=== PATIENT | male | born 1955 | race African-American/Black ===

== ENCOUNTER 2016-09-16 11:13 | Emergency (ER) | payer MEDICARE, MEDICAID ==
[2016-09-16] MEDS ORDERED: Ibuprofen TAB* 400 MG PO ONE (11:49)
[2016-09-16 12:00] VITALS: BP 155/115
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
== END 2016-09-16 12:03 | disposition home or self-care (01) ==
LOC: ED 11:13
DX: S80.212A Abrasion, left knee, initial encounter (principal); S80.211A Abrasion, right knee, initial encounter; X58.XXXA Exposure to other specified factors, initial encounter; Y92.9 Unspecified place or not applicable; I10 Essential (primary) hypertension; Z72.0 Tobacco use
CPT/HCPCS: 99282; A9270-GY

== ENCOUNTER 2016-11-14 09:26 | Emergency (ER) | payer MEDICARE, MEDICAID ==
[2016-11-14] MEDS ORDERED: NS 0.9% 1000 ML* 2,000 ML IV ONE (10:01)
[2016-11-14] MEDS ORDERED: Acetaminophen TAB* 325 MG PO ONE (10:01)
[2016-11-14 10:21] LABS: Hematocrit 44 % (42-52); Hemoglobin 13.9 g/dl (14.0-18.0); Mean Corpuscular HGB Conc 32 g/dl (31-36); Mean Corpuscular Hemoglobin 25 pg (27-31); Mean Corpuscular Volume 79 fL (80-94); Mean Platelet Volume 9 um3 (7.4-10.4); Red Cell Distribution Width 15 % (10.5-15)
--- NOTE | 2016-11-14 10:39 | RAD ---
INDICATION: Sepsis. COMPARISON: There are no prior studies available for comparison. TECHNIQUE: AP and lateral views of the chest were obtained. FINDINGS: The heart is within normal limits in size. Mediastinal and hilar contours appear within normal limits. There is a small likely calcified nodule in the right midlung measuring 5 mm in size which is unchanged from the prior exam. The lungs are otherwise clear, no pleural effusion is present. IMPRESSION: NO EVIDENCE FOR ACTIVE CARDIOPULMONARY DISEASE.
[2016-11-14 10:42] LABS: Troponin I 0.03 ng/mL (<0.04)
[2016-11-14 10:56] LABS: Albumin 4.2 g/dL (3.2-5.2); BUN/Creatinine Ratio 10.3 (8-20); C Reactive Protein 166.93 mg/L (< 5.00); Calcium 9.6 mg/dL (8.6-10.3); EGFR African American 75.1 (>60); EGFR Non-African American 58.4 (>60); Globulin 2.8 g/dL (2-4); Potassium 3.6 mmol/L (3.5-5.0); Total Bilirubin 2.7 mg/dL (0.2-1.0)
[2016-11-14 11:52] LABS: Urine Bacteria Absent (Absent); Urine Bilirubin Negative (Negative); Urine Glucose Negative (Negative); Urine Nitrite Negative (Negative)
--- NOTE | 2016-11-14 12:06 | RAD ---
INDICATION: ] Right upper quadrant pain COMPARISON: December 18, 2009 TECHNIQUE: Longitudinal and transverse scans of the right upper quadrant were obtained. Doppler interrogation of the hepatic and portal venous system was performed. FINDINGS: Liver: The liver is top normal in size. There is mild hepatic steatosis. There are no focal masses. The liver measures 17.8 cm in cephalocaudal dimension. Vessels: There is normal hepatic and portal venous flow. Bile ducts: There is no evidence of intrahepatic or extrahepatic ductal dilatation. The common duct measures 0.5 cm. Gallbladder: The sonographic appearance of the gallbladder is normal. There is no evidence of cholelithiasis, thickening of the gallbladder wall, or pericholecystic fluid. The patient was tender over the gallbladder while scanning. Pancreas: The visualized pancreas appears normal Right kidney: The right kidney is normal in size and echogenicity. There are no masses or calculi. There is no evidence of hydronephrosis. The right kidney measures 10.2 x 4.6 x 5.3 cm. IVC and aorta: The aorta and superior vena cava appear normal. Fluid: There is no ascites. Other: None. IMPRESSION: NO SONOGRAPHIC ABNORMALITIES. THE PATIENT WAS TENDER OVER THE GALLBLADDER, HOWEVER, WHEN SCANNING
[2016-11-14] MEDS ORDERED: Iohexol 300* (CONTRAST) 10 ML SDV IV ONE (14:01)
--- NOTE | 2016-11-14 15:11 | RAD ---
Indication: Diffuse abdominal pain. Contrast: Administered 118.9 ml of OMNIPAQUE 300 mgi/ml CT of the abdomen and pelvis was performed after oral and IV contrast administration. Coronal and sagittal reconstructed images were obtained. The lung bases demonstrate no pleural fluid, nodules or masses. Heart is of normal size without pericardial effusion. The liver is normal in size. No focal lesions or intrahepatic duct dictation noted. The gallbladder demonstrates no calcified gallstones. No pericholecystic fluid or wall thickening is identified. The spleen demonstrates multiple calcifications consistent with old granulomatous disease. The pancreas demonstrates no pancreatic duct dilatation. Common duct is not dilated. Posterior and dorsal to the pancreatic body and anterior to the left adrenal gland as well as adjacent to the lesser curvature of the stomach is a well demarcated mass with homogeneous low density measuring 2.7 x 4.3 x 2.7 cm. The exact organ of origin is not clearly identified on this study. Further evaluation with ultrasound could be performed if clinically warranted to evaluate if this is a cystic structure. This demonstrates a Hounsfield reading of approximately 40-64 which is likely solid. Bilateral adrenal hyperplasia are noted. The kidneys demonstrate symmetric nephrograms. Small bowel demonstrates no abnormal dilatation. CT of the pelvis demonstrates diverticulosis of the ascending colon. Pericolonic infiltration of fat is noted especially in the medial aspect of the descending colon. There is a small focal contained area of extraluminal air and this may represent of focal diverticulitis of the a.c. ascending colon. Scattered diverticula noted in the descending colon and sigmoid colon as well. No evidence of abscess collection is noted. The urinary bladder is unremarkable. The prostate and seminal vesicles are grossly unremarkable. No retroperitoneal lymphadenopathy is noted. The bony structures are grossly unremarkable. IMPRESSION: THERE IS LIKELY A LOCALIZED DIVERTICULITIS OF THE ASCENDING COLON. NO PERIDIVERTICULAR ABSCESS IS NOTED. HOMOGENEOUS LOW DENSITY MASS DORSAL TO THE PANCREAS INFERIOR TO THE LESSER CURVATURE OF THE STOMACH. THIS IS OF UNCERTAIN ETIOLOGY AND FURTHER EVALUATION WITH ULTRASOUND AND/OR MRI COULD PERFORMED CLINICALLY WARRANTED. THIS MASS MEASURES 2.7 X 4.3 X 2.7 CM
[2016-11-14] MEDS ORDERED: oxyCODONE/Acetamin 5/325 MG* TAB PO ONE (15:53)
[2016-11-14] MEDS ORDERED: metroNIDAZOLE TAB* 250 MG PO ONE (15:54)
[2016-11-14] MEDS ORDERED: Ciprofloxacin TAB* 500 MG PO ONE (15:54)
[2016-11-14 16:05] VITALS: BP 123/76
--- NOTE | 2016-11-15 07:14 | ED ---
Robin Plascencia Matthew, scribed for Lane Maldonado MD on 11/14/16 at 1042 . Abdominal Pain/Male - HPI Summary HPI Summary: A 61 y/o male presents to the ED with constant, diffuse lower abdominal pain since yesterday. The pain is rated 9/10 in severity and worse with movement. The patient's symptoms began 2 hours after he ate a bologna sandwich. Associated symptoms include a constant, diffuse headache described as throbbing , chills, fever, constipation, and inability to sleep. He denies nausea, vomiting, diarrhea, sore throat, and sinus congestion. - History of Current Complaint Chief Complaint: EDAbdPain Stated Complaint: HEADACHE / ABD PAIN Time Seen by Provider: 11/14/16 09:49 Hx Obtained From: Patient Onset/Duration: Lasting Days, Still Present Timing: Constant Severity Initially: Moderate Severity Currently: Moderate Pain Intensity: 9 Pain Scale Used: 0-10 Numeric Location: Diffuse - lower abdominal Radiates: No Aggravating Factor(s): Movement Alleviating Factor(s): Nothing Associated Signs And Symptoms: Positive: Fever, Constipation, Other - Headache, Chills. Negative: Vomiting, Diarrhea - Allergies/Home Medications Allergies/Adverse Reactions: Allergies Allergy/AdvReac Type Severity Reaction Status Date / Time No Known Allergies Allergy Verified 09/16/16 11:18 PMH/Surg Hx/FS Hx/Imm Hx Cardiovascular History: Reports: Hx Hypertension Musculoskeletal History: Reports: Hx Orthopedic Injury, Other Musculoskeletal History - osteoarthritis bilateral knees Infectious Disease History: No Infectious Disease History: Denies: Traveled Outside the [place] in Last 30 Days - Family History Known Family History: Positive: Hypertension - Social History Alcohol Use: Rare Alcohol Amount: 2 beers a day Substance Use Type: Reports: None Smoking Status (MU): Light Every Day Tobacco Smoker Review of Systems Positive: Fever, Chills Eyes: Negative ENT: Negative Negative: Sore Throat Cardiovascular: Negative Respiratory: Negative Gastrointestinal: Other - Constipation Positive: Abdominal Pain - Diffuse lower abdominal pain . Negative: Vomiting, Diarrhea, Nausea Genitourinary: Negative Negative: dysuria, hematuria Musculoskeletal: Negative Skin: Negative Neurological: Negative Psychological: Normal All Other Systems Reviewed And Are Negative: Yes Physical Exam Triage Information Reviewed: Yes Vital Signs On Initial Exam: Initial Vitals Temp Pulse Resp BP Pulse Ox 101.4 F 126 24 144/108 100 11/14/16 09:28 11/14/16 09:28 11/14/16 09:28 11/14/16 09:28 11/14/16 09:28 Vital Signs Reviewed: Yes Appearance: Positive: No Pain Distress, Well-Nourished Skin: Positive: Warm, Skin Color Reflects Adequate Perfusion, Dry Head/Face: Positive: Normal Head/Face Inspection Eyes: Positive: Normal ENT: Positive: Normal ENT inspection Neck: Positive: Supple, Nontender Respiratory/Lung Sounds: Positive: Clear to Auscultation, Breath Sounds Present Cardiovascular: Positive: Tachycardia Abdomen Description: Positive: No Organomegaly, Soft, Other: - nondescript tenderness, the abdomen had tenderness everywhere I palpated Bowel Sounds: Positive: Present Musculoskeletal: Positive: Normal Neurological: Positive: Normal, Alert, Oriented to Person Place, Time Psychiatric: Positive: Affect/Mood Appropriate - Aaron Coma Scale Coma Scale Total: 15 Diagnostics - Vital Signs Vital Signs Temp Pulse Resp BP Pulse Ox 11/14/16 09:45 98.1 F 100 16 142/97 97 11/14/16 09:40 103 97 11/14/16 09:39 147/101 11/14/16 09:28 101.4 F 126 24 144/108 100 - Laboratory Lab Results: Lab Results 11/14/16 11/14/16 11/14/16 Range/Units 10:07 10:07 10:07 WBC 16.0 H (3.5-10.8) 10^3/ul RBC 5.60 H (4.0-5.4) 10^6/ul Hgb 13.9 L (14.0-18.0) g/dl Hct 44 (42-52) % MCV 79 L (80-94) fL MCH 25 L (27-31) pg MCHC 32 (31-36) g/dl RDW 15 (10.5-15) % Plt Count 110 L (150-450) 10^3/ul MPV 9 (7.4-10.4) um3 Neut % (Auto) 91.0 H (38-83) % Lymph % (Auto) 1.5 L (25-47) % Meeker % (Auto) 5.5 (1-9) % Eos % (Auto) 1.5 (0-6) % Baso % (Auto) 0.5 (0-2) % Absolute Neuts (auto) 14.5 H (1.5-7.7) 10^3/ul Absolute Lymphs (auto) 0.2 L (1.0-4.8) 10^3/ul Absolute Monos (auto) 0.9 H (0-0.8) 10^3/ul Absolute Eos (auto) 0.2 (0-0.6) 10^3/ul Absolute Basos (auto) 0.1 (0-0.2) 10^3/ul Absolute Nucleated RBC 0 10^3/ul Nucleated RBC % 0 INR (Anticoag Therapy) 1.25 H (0.89-1.11) APTT 32.5 (26.0-36.3) seconds Sodium 136 (133-145) mmol/L Potassium 3.6 (3.5-5.0) mmol/L Chloride 101 (101-111) mmol/L Carbon Dioxide 26 (22-32) mmol/L Anion Gap 9 (2-11) mmol/L BUN 13 (6-24) mg/dL Creatinine 1.26 H (0.67-1.17) mg/dL Est GFR ( Amer) 75.1 (>60) Est GFR (Non-Af Amer) 58.4 (>60) BUN/Creatinine Ratio 10.3 (8-20) Glucose 97 (70-100) mg/dL Lactic Acid (0.5-2.0) mmol/L Calcium 9.6 (8.6-10.3) mg/dL Total Bilirubin 2.70 H (0.2-1.0) mg/dL AST 62 H (13-39) U/L ALT 70 H (7-52) U/L Alkaline Phosphatase 95 (34-104) U/L Troponin I 0.03 (<0.04) ng/mL C-Reactive Protein 166.93 H (< 5.00) mg/L Total Protein 7.0 (6.4-8.9) g/dL Albumin 4.2 (3.2-5.2) g/dL Globulin 2.8 (2-4) g/dL Albumin/Globulin Ratio 1.5 (1-3) Urine Color Urine Appearance Urine pH (5-9) Ur Specific Montgomery (1.010-1.030) Urine Protein (Negative) Urine Ketones (Negative) Urine Blood (Negative) Urine Nitrate (Negative) Urine Bilirubin (Negative) Urine Urobilinogen (Negative) Ur Leukocyte Esterase (Negative) Urine WBC (Auto) (Absent) Urine RBC (Auto) (Absent) Ur Squamous Epith Cells (Absent) Urine Bacteria (Absent) Urine Glucose (Negative) Influenza A (Rapid) (Negative) Influenza B (Rapid) (Negative) 11/14/16 11/14/16 11/14/16 Range/Units 10:07 10:32 11:11 WBC (3.5-10.8) 10^3/ul RBC (4.0-5.4) 10^6/ul Hgb (14.0-18.0) g/dl Hct (42-52) % MCV (80-94) fL MCH (27-31) pg MCHC (31-36) g/dl RDW (10.5-15) % Plt Count (150-450) 10^3/ul MPV (7.4-10.4) um3 Neut % (Auto) (38-83) % Lymph % (Auto) (25-47) % Meeker % (Auto) (1-9) % Eos % (Auto) (0-6) % Baso % (Auto) (0-2) % Absolute Neuts (auto) (1.5-7.7) 10^3/ul Absolute Lymphs (auto) (1.0-4.8) 10^3/ul Absolute Monos (auto) (0-0.8) 10^3/ul Absolute Eos (auto) (0-0.6) 10^3/ul Absolute Basos (auto) (0-0.2) 10^3/ul Absolute Nucleated RBC 10^3/ul Nucleated RBC % INR (Anticoag Therapy) (0.89-1.11) APTT (26.0-36.3) seconds Sodium (133-145) mmol/L Potassium (3.5-5.0) mmol/L Chloride (101-111) mmol/L Carbon Dioxide (22-32) mmol/L Anion Gap (2-11) mmol/L BUN (6-24) mg/dL Creatinine (0.67-1.17) mg/dL Est GFR ( Amer) (>60) Est GFR (Non-Af Amer) (>60) BUN/Creatinine Ratio (8-20) Glucose (70-100) mg/dL Lactic Acid 0.9 (0.5-2.0) mmol/L Calcium (8.6-10.3) mg/dL Total Bilirubin (0.2-1.0) mg/dL AST (13-39) U/L ALT (7-52) U/L Alkaline Phosphatase (34-104) U/L Troponin I (<0.04) ng/mL C-Reactive Protein (< 5.00) mg/L Total Protein (6.4-8.9) g/dL Albumin (3.2-5.2) g/dL Globulin (2-4) g/dL Albumin/Globulin Ratio (1-3) Urine Color Yellow Urine Appearance Clear Urine pH 5.0 (5-9) Ur Specific Montgomery 1.017 (1.010-1.030) Urine Protein Negative (Negative) Urine Ketones Trace H (Negative) Urine Blood 1+ H (Negative) Urine Nitrate Negative (Negative) Urine Bilirubin Negative (Negative) Urine Urobilinogen Negative (Negative) Ur Leukocyte Esterase Negative (Negative) Urine WBC (Auto) Trace(0-5/hpf) (Absent) Urine RBC (Auto) Trace(0-2/hpf) (Absent) Ur Squamous Epith Cells Present H (Absent) Urine Bacteria Absent (Absent) Urine Glucose Negative (Negative) Influenza A (Rapid) Negative (Negative) Influenza B (Rapid) Negative (Negative) Result Diagrams: 11/14/16 10:07 11/14/16 10:07 Lab Statement: Any lab studies that have been ordered have been reviewed, and results considered in the medical decision making process. - Radiology CXR Xray Interpretation: No Acute Changes - IMPRESSION: NO EVIDENCE FOR ACTIVE CARDIOPULMONARY DISEASE. Radiology Interpretation Completed By: Radiologist - CT A/P CT CT Interpretation: Positive (See Comments) - IMPRESSION: THERE IS LIKELY A LOCALIZED DIVERTICULITIS OF THE ASCENDING COLON. NO PERIDIVERTICULAR ABSCESS IS NOTED. HOMOGENEOUS LOW DENSITY MASS DORSAL TO THE PANCREAS INFERIOR TO THE LESSER CURVATURE OF THE STOMACH. THIS IS OF UNCERTAIN ETIOLOGY AND FURTHER EVALUATION WITH ULTRASOUND AND/OR MRI COULD PERFORMED CLINICALLY WARRANTED. THIS MASS MEASURES 2.7 X 4[address] Interpretation Completed By: Radiologist - Ultrasound No standard instances Ultrasound Interpretation: No Acute Changes - IMPRESSION: NO SONOGRAPHIC ABNORMALITIES. THE PATIENT WAS TENDER OVER THE GALLBLADDER, HOWEVER, WHEN SCANNING Ultrasound Interpretation Completed By: Radiologist Abdominal Pain Fem Course/Dx - Course Assessment/Plan: A 61 y/o male presents to the ED with constant, diffuse lower abdominal pain since yesterday. Labs were reviewed. CXR shows no active cardiopulmonary disease. CT A/P shows likely a localized diverticulitis of the ascending colon. US shows no sonographic abnormalities. The patient will be discharged home on Cipro and Percocet. He will follow-up with his PCP next week. - Diagnoses Provider Diagnoses: Diverticulitis Discharge - Discharge Plan Condition: Stable Disposition: HOME Prescriptions: Ciprofloxacin TAB* [Cipro Tab*] 500 mg PO BID #20 tab Metronidazole [Flagyl 500 MG TAB] 500 mg PO TID #30 tab oxyCODONE/Acetamin 5/325 MG* [Percocet 5/325 TAB*] 1 tab PO Q6H PRN #20 tab MDD 4 PRN Reason: Pain Patient Education Materials: Diverticulitis (ED), Ciprofloxacin (By mouth), Oxycodone/Acetaminophen (By mouth) Referrals: No Primary Care Phys,NOPCP [Primary Care Provider] - 5 Days Additional Instructions: Please follow-up with your primary care physician next week. The documentation as recorded by the Robin mckeon Matthew accurately reflects the service I personally performed and the decisions made by , Lane Maldonado MD.
== END 2016-11-14 16:05 | disposition home or self-care (01) ==
LOC: ED 09:26
DX: K57.92 Diverticulitis of intestine, part unspecified, without perforation or abscess without bleeding (principal); R10.30 Lower abdominal pain, unspecified; R51 Headache; R50.9 Fever, unspecified; K59.00 Constipation, unspecified
CPT/HCPCS: 36415; 71020; 74177; 76705; 80053; 81003; 81015; 83605; 84484; 85025; 85610; 85730; 86140; 87502; 99283; A9270-GY; Q9967

== ENCOUNTER 2017-04-03 08:25 | Emergency (ER) | payer MEDICARE, MEDICAID ==
[2017-04-03] MEDS ORDERED: Ketorolac INJ* 30 MG/ML 1 ML VIAL IV ONE (08:40)
--- NOTE | 2017-04-03 09:24 | RAD ---
Indication: Right foot pain. 3 views of the right foot demonstrates no fracture. No other bone or joint abnormality is identified. IMPRESSION: No fracture of the right foot is noted.
[2017-04-03 09:43] LABS: Hematocrit 43 % (42-52); Hemoglobin 13.7 g/dl (14.0-18.0); Mean Corpuscular HGB Conc 32 g/dl (31-36); Mean Corpuscular Hemoglobin 26 pg (27-31); Mean Corpuscular Volume 81 fL (80-94); Red Blood Count 5.29 10^6/ul (4.0-5.4); Red Cell Distribution Width 16 % (10.5-15); White Blood Count 8.4 10^3/ul (3.5-10.8)
[2017-04-03 09:45] LABS: Comments Flag Yes
[2017-04-03 09:46] LABS: Add Diff/Slide Review? Slide Review Added
[2017-04-03 09:49] LABS: Albumin 4.5 g/dL (3.2-5.2); BUN/Creatinine Ratio 16.7 (8-20); C Reactive Protein 6.18 mg/L (< 5.00); Calcium 9.4 mg/dL (8.6-10.3); EGFR African American 119.9 (>60); EGFR Non-African American 93.2 (>60); Globulin 2.8 g/dL (2-4); Potassium 4.2 mmol/L (3.5-5.0); Total Bilirubin 1.3 mg/dL (0.2-1.0); Total Protein 7.3 g/dL (6.4-8.9); Uric Acid 9.4 mg/dL (4.4-7.6)
[2017-04-03] MEDS ORDERED: Cephalexin CAP* 500 MG PO ONE (10:25)
[2017-04-03 10:55] LABS: Mean Platelet Volume 9 um3 (7.4-10.4)
[2017-04-03 11:18] VITALS: BP 137/84
--- NOTE | 2017-04-04 19:19 | ED ---
Eva Plascencia Alfonso, scribed for Jcarlos Jeff MD on 04/03/17 at 0833 . Lower Extremity - HPI Summary HPI Summary: This patient is a 61 year old M presenting to [facility] with a chief complaint of right great toe pain since yesterday morning. Pt rates the pain 9/10 in severity. Symptoms aggravated by ambulation and alleviated by nothing. Pt denies fever, chills. He denies any recent trauma. PMHx of HTN. ETOH abuse (6 beers a day). - History of Current Complaint Chief Complaint: EDExtremityLower Stated Complaint: RT FOOT PAIN Hx Obtained From: Patient Mechanism Of Injury: Unknown Onset of Pain: Days - Yesterday morning, Prior to Arrival Onset/Duration: Still Present - Yesterday morning Severity Initially: Severe Severity Currently: Severe Pain Intensity: 9 Pain Scale Used: 0-10 Numeric Timing: Constant Location: Is Discrete @ - Right great toe Associated Signs And Symptoms: Positive: Other - negative chills. Negative: Fever Aggravating Factor(s): Ambulation Alleviating Factor(s): Nothing - Allergies/Home Medications Allergies/Adverse Reactions: Allergies Allergy/AdvReac Type Severity Reaction Status Date / Time No Known Allergies Allergy Verified 04/03/17 08:41 Home Medications: Home Medications Lisinopril/HCTZ 03/09.5(NF) 1 tab PO DAILY 04/03/17 [History Confirmed 04/03/17] PMH/Surg Hx/FS Hx/Imm Hx Cardiovascular History: Reports: Hx Hypertension Musculoskeletal History: Reports: Hx Orthopedic Injury, Other Musculoskeletal History - osteoarthritis bilateral knees Opthamlomology History: Denies: Hx Legally Blind EENT History: Denies: Hx Deafness Infectious Disease History: Denies: Traveled Outside the [place] in Last 30 Days - Family History Known Family History: Positive: Hypertension - Social History Alcohol Use: Rare Alcohol Amount: 2 beers a day Substance Use Type: Reports: None Smoking Status (MU): Light Every Day Tobacco Smoker Review of Systems Negative: Fever, Chills Musculoskeletal: Other - Positive right great toe pain. All Other Systems Reviewed And Are Negative: Yes Physical Exam - Summary Physical Exam Summary: VITAL SIGNS: Reviewed. GENERAL: Patient is a well-developed and nourished male who is lying comfortable in the stretcher. Patient is not in any acute respiratory distress. HEAD AND FACE: No signs of trauma. No ecchymosis, hematomas or skull depressions. No sinus tenderness. EYES: PERRLA, EOMI x 2, No injected conjunctiva, no nystagmus. EARS: Hearing grossly intact. Ear canals and tympanic membranes are within normal limits. MOUTH: Oropharynx within normal limits. NECK: Supple, trachea is midline, no adenopathy, no JVD, no carotid bruit, no c- spine tenderness, neck with full ROM. CHEST: Symmetric, no tenderness at palpation LUNGS: Clear to auscultation bilaterally. No wheezing or crackles. CVS: Regular rate and rhythm, S1 and S2 present, no murmurs or gallops appreciated. ABDOMEN: Soft, non-tender. No signs of distention. No rebound no guarding, and no masses palpated. Bowel sounds are normal. EXTREMITIES: Right great toe tenderness, erythema, and decreased ROM secondary to the pain. NEURO: Alert and oriented x 3. No acute neurological deficits. Speech is normal and follows commands. SKIN: Dry and warm Triage Information Reviewed: Yes Vital Signs On Initial Exam: Initial Vitals Temp Pulse Resp BP Pulse Ox 98.4 F 105 16 144/124 99 04/03/17 08:28 04/03/17 08:28 04/03/17 08:28 04/03/17 08:28 04/03/17 08:28 Vital Signs Reviewed: Yes Diagnostics - Vital Signs Vital Signs Temp Pulse Resp BP Pulse Ox 04/03/17 08:28 98.4 F 105 16 144/124 99 - Laboratory Lab Results: Lab Results 04/03/17 04/03/17 04/03/17 Range/Units 09:20 09:20 09:20 WBC 8.4 (3.5-10.8) 10^3/ul RBC 5.29 (4.0-5.4) 10^6/ul Hgb 13.7 L (14.0-18.0) g/dl Hct 43 (42-52) % MCV 81 (80-94) fL MCH 26 L (27-31) pg MCHC 32 (31-36) g/dl RDW 16 H (10.5-15) % Plt Count 164 (150-450) 10^3/ul MPV 9 (7.4-10.4) um3 Neut % (Auto) 66.1 (38-83) % Lymph % (Auto) 17.9 L (25-47) % Tift % (Auto) 10.5 H (1-9) % Eos % (Auto) 4.8 (0-6) % Baso % (Auto) 0.7 (0-2) % Absolute Neuts (auto) 5.6 (1.5-7.7) 10^3/ul Absolute Lymphs (auto) 1.5 (1.0-4.8) 10^3/ul Absolute Monos (auto) 0.9 H (0-0.8) 10^3/ul Absolute Eos (auto) 0.4 (0-0.6) 10^3/ul Absolute Basos (auto) 0.1 (0-0.2) 10^3/ul Absolute Nucleated RBC 0.01 10^3/ul Nucleated RBC % 0.1 Sodium 136 (133-145) mmol/L Potassium 4.2 (3.5-5.0) mmol/L Chloride 106 (101-111) mmol/L Carbon Dioxide 22 (22-32) mmol/L Anion Gap 8 (2-11) mmol/L BUN 14 (6-24) mg/dL Creatinine 0.84 (0.67-1.17) mg/dL Est GFR ( Amer) 119.9 (>60) Est GFR (Non-Af Amer) 93.2 (>60) BUN/Creatinine Ratio 16.7 (8-20) Glucose 82 (70-100) mg/dL Lactic Acid 1.2 (0.5-2.0) mmol/L Uric Acid 9.4 H (4.4-7.6) mg/dL Calcium 9.4 (8.6-10.3) mg/dL Total Bilirubin 1.30 H (0.2-1.0) mg/dL AST 22 (13-39) U/L ALT 17 (7-52) U/L Alkaline Phosphatase 71 (34-104) U/L C-Reactive Protein 6.18 H (< 5.00) mg/L Total Protein 7.3 (6.4-8.9) g/dL Albumin 4.5 (3.2-5.2) g/dL Globulin 2.8 (2-4) g/dL Albumin/Globulin Ratio 1.6 (1-3) Result Diagrams: 04/03/17 09:20 04/03/17 09:20 Lab Statement: Any lab studies that have been ordered have been reviewed, and results considered in the medical decision making process. - Radiology Foot X-Ray Radiology Interpretation Completed By: Radiologist - No fracture of the right foot is noted. Lower Extremity Course/Dx - Course Course Of Treatment: This patient is a 61 year old M presenting to [facility] with a chief complaint of right great toe pain since yesterday morning. Pt rates the pain 9/10 in severity. Symptoms aggravated by ambulation and alleviated by nothing. Pt denies fever, chills. He denies any recent trauma. PMHx of HTN. ETOH abuse (6 beers a day). Assessment/Plan: Test results without any significant abnormalities expect for increased Uric Acid and CRP of 6.18. I believe the patients symptoms are secondary to gout. However, there is small abrasion surrounding the area of the pain, so I am unable to rule out cellulitis. Therefore, the patient was given Toradol for the gout and Keflex for cellulitis. Foot X-Ray reveals No fracture of the right foot is noted. At this point I discussed all findings, test results , and need to follow up with PCP with the patient. He was instructed to elevate his foot at all times. He was instructed to return to the ED if he develops a fever, chills, worsening of any symptoms or pain. Patient is hemodynamically stable and A&Ox3. I discussed all the findings and test results with the patient. Patient was instructed to return to the emergency room immediately if any of the symptoms return or worsens. Plan of care was discussed with the patient and understands and agrees. All questions were answered at patient satisfaction. There were no further complaints or concerns. Lung exam before discharge: CTA B/L. Good air exchange. No wheezing or crackles heard. CVS: S1 and S2 present. No murmurs appreciated. Patient is alert and oriented x 3. Patient is hemodynamically stable. Patient will be discharged home with follow up PCP in the next 2-3 days - Diagnoses Differential Diagnosis/HQI/PQRI: Positive: Bursitis, Cellulitis, Gout Provider Diagnoses: Gout, Cellulitis Discharge - Discharge Plan Condition: Stable Disposition: HOME Prescriptions: Cephalexin CAP* [Keflex CAP*] 500 mg PO TID #30 cap Indomethacin CAP* [Indocin CAP*] 50 mg PO TID PRN #30 cap PRN Reason: Pain Patient Education Materials: Gout (ED), Cellulitis (ED) Referrals: [facility] PHYSICIAN REFERRAL [Outside] - 3 Days The documentation as recorded by the Eva mckeon Alfonso accurately reflects the service I personally performed and the decisions made by Tomer montez Walter, MD.
== END 2017-04-03 11:17 | disposition home or self-care (01) ==
LOC: ED 08:25
DX: M10.9 Gout, unspecified (principal); L03.031 Cellulitis of right toe; F17.210 Nicotine dependence, cigarettes, uncomplicated; I10 Essential (primary) hypertension
CPT/HCPCS: 36415; 80053; 83605; 84550; 85025; 86140; 96374; 99283; A9270-GY; J1885

== ENCOUNTER 2017-05-10 11:43 | Observation (INO) | payer MEDICARE, MEDICAID ==
[2017-05-10] MEDS ORDERED: Aspirin Low Dose CHEW TAB* 81 MG PO ONE (12:40)
--- NOTE | 2017-05-10 13:14 | RAD ---
HISTORY: Chest pain COMPARISONS: November 14, 2016 VIEWS:1: Single frontal portable view of the chest at 1:00 PM FINDINGS: LINES AND TUBES: None. CARDIOMEDIASTINAL SILHOUETTE: The cardiomediastinal silhouette is stable. PLEURA: The costophrenic angles are sharp. No pleural abnormalities are noted. LUNG PARENCHYMA: The lungs are clear. ABDOMEN: The upper abdomen is clear. There is no subphrenic gas. BONES AND SOFT TISSUES: No bone or soft tissue abnormalities are noted. IMPRESSION: NO ACTIVE CARDIOPULMONARY DISEASE.
[2017-05-10 13:35] LABS: Add Diff/Slide Review? Slide Review Added; Comments Flag Yes; Hematocrit 43 % (42-52); Mean Corpuscular HGB Conc 32 g/dl (31-36); Mean Corpuscular Hemoglobin 26 pg (27-31); Mean Corpuscular Volume 80 fL (80-94); Mean Platelet Volume 9 um3 (7.4-10.4); Red Blood Count 5.43 10^6/ul (4.0-5.4); Red Cell Distribution Width 15 % (10.5-15); White Blood Count 9.9 10^3/ul (3.5-10.8)
[2017-05-10 13:44] LABS: Albumin 4.6 g/dL (3.2-5.2); BUN/Creatinine Ratio 15.4 (8-20); Calcium 9.9 mg/dL (8.6-10.3); EGFR African American 109.3 (>60); Globulin 2.8 g/dL (2-4); Potassium 3.7 mmol/L (3.5-5.0); Total Bilirubin 1.4 mg/dL (0.2-1.0); Total Protein 7.4 g/dL (6.4-8.9)
[2017-05-10 13:46] LABS: Troponin I 0.01 ng/mL (<0.04)
[2017-05-10] MEDS ORDERED: Ondansetron INJ* 2 MG/ML VIAL IV PRN (13:58)
[2017-05-10] MEDS ORDERED: Acetaminophen TAB* 325 MG PO PRN (13:58)
[2017-05-10] MEDS ORDERED: Al Hydrox/Mg Hydrox/Simet LIQ* 30 ML UDC PO PRN (13:58)
[2017-05-10] MEDS ORDERED: Temazepam CAP* 15 MG PO PRN (13:58)
--- NOTE | 2017-05-10 14:30 | ED ---
Ny Plascencia Edward, scribed for Tarik Altamirano on 05/10/17 at 1225 . HPI Chest Pain - HPI Summary HPI Summary: 61 y/o male presents to ED c/o intermittent CP starting this morning, that comes every 20-25 minutes, lasting seconds each episode. The pt was walking when it started. Denies N/V, SOB, pedal edema. EtOH use. Smoker. PMHx HTN, arthritis in both knees. Denies FHx cardiac disease. - History of Current Complaint Chief Complaint: EDChestPainROMI Time Seen by Provider: 05/10/17 12:12 Hx Obtained From: Patient Onset/Duration: Started Hours Ago Timing: Intermittent, Lasting Seconds Associated Signs and Symptoms: Positive: Chest Pain. Negative: Shortness of Breath, Nausea, Calf Pain/Swelling, Vomiting - Allergy/Home Medications Allergies/Adverse Reactions: Allergies Allergy/AdvReac Type Severity Reaction Status Date / Time No Known Allergies Allergy Verified 04/03/17 08:41 PMH/Surg Hx/FS Hx/Imm Hx Previously Healthy: No Cardiovascular History: Reports: Hx Hypertension Musculoskeletal History: Reports: Hx Orthopedic Injury, Other Musculoskeletal History - osteoarthritis bilateral knees Sensory History: Denies: Hx Legally Blind, Hx Deafness Opthamlomology History: Denies: Hx Legally Blind Infectious Disease History: Denies: Traveled Outside the [place] in Last 30 Days - Family History Known Family History: Positive: Hypertension Negative: Cardiac Disease - Social History Alcohol Use: Rare Alcohol Amount: 2 beers a day Substance Use Type: Reports: None Smoking Status (MU): Light Every Day Tobacco Smoker Review of Systems Constitutional: Negative Eyes: Negative ENT: Negative Positive: Chest Pain Respiratory: Negative Gastrointestinal: Negative Genitourinary: Negative Musculoskeletal: Negative Skin: Negative Neurological: Negative Psychological: Normal All Other Systems Reviewed And Are Negative: Yes Physical Exam Triage Information Reviewed: Yes Vital Signs On Initial Exam: Initial Vitals Temp Pulse Resp BP Pulse Ox 97.3 F 103 20 141/104 99 05/10/17 11:52 05/10/17 11:52 05/10/17 11:52 05/10/17 11:52 05/10/17 11:52 Vital Signs Reviewed: Yes Appearance: Positive: Well-Appearing, No Pain Distress Skin: Positive: Warm, Skin Color Reflects Adequate Perfusion, Dry Head/Face: Positive: Normal Head/Face Inspection Eyes: Positive: EOMI, ARPITA ENT: Positive: Normal ENT inspection Neck: Positive: Supple, Nontender Respiratory/Lung Sounds: Positive: Clear to Auscultation, Breath Sounds Present Cardiovascular: Positive: Pulses are Symmetrical in both Upper and Lower Extremities, Tachycardia Abdomen Description: Positive: Nontender, Soft Bowel Sounds: Positive: Present Musculoskeletal: Positive: Normal, Strength/ROM Intact Neurological: Positive: Normal, Sensory/Motor Intact, Alert, Oriented to Person Place, Time Diagnostics - Vital Signs Vital Signs Temp Pulse Resp BP Pulse Ox 05/10/17 11:52 97.3 F 103 20 141/104 99 - Laboratory Result Diagrams: 05/10/17 13:05 05/10/17 13:05 Lab Statement: Any lab studies that have been ordered have been reviewed, and results considered in the medical decision making process. - Radiology CXR Xray Interpretation: No Acute Changes - NO ACTIVE DISEASE Radiology Interpretation Completed By: Radiologist - EKG 1 EKG Interpretation: 12:04 - SINUS TACHYCARDIA @ 100 BPM. NONSPECIFIC T CHANGES Chest Pain Course/Dx - Course Assessment/Plan: 61 y/o male presents to ED c/o intermittent CP starting this morning, that comes every 20-25 minutes, lasting seconds each episode. The pt was walking when it started. Denies N/V, SOB, pedal edema. EtOH use. Smoker. PMHx HTN, arthritis in both knees. Denies FHx cardiac disease. EKG 12:04 - SINUS TACHYCARDIA @ 100 BPM. NONSPECIFIC T CHANGES. CXR SHOWS NO ACTIVE CARDIOPULMONARY DISEASE. Labs done. Spoke with Dr. Hernandez @ 13:55 who admitted the pt to [facility] to r/o [place]. Pt is agreeable. - Diagnoses Provider Diagnoses: Chest pain, rule out acute myocardial infarction - Provider Notifications Discussed Care Of Patient With: Tiffany Hernandez Time Discussed With Above Provider: 13:55 Instructed by Provider To: Admit As Inpatient Discharge - Discharge Plan Condition: Stable Disposition: HOME Referrals: No Primary Care Phys,NOPCP [Primary Care Provider] - The documentation as recorded by the Ny mckeon Edward accurately reflects the service I personally performed and the decisions made by me, Tarik Altamirano.
[2017-05-10] MEDS: Lisinopril TAB* 10 MG PO SCH (15:29)
[2017-05-10] MEDS: Hydrochlorothiazide TAB* 25 MG PO SCH (15:29)
[2017-05-10] MEDS: Heparin VIAL(*) 5000 UNITS/ML VIAL (FIVE THOUSAND) SUBCUT SCH ×2 (15:32→21:44)
[2017-05-10 15:35] LABS: Troponin I 0.01 ng/mL (<0.04)
--- NOTE | 2017-05-10 16:21 | HP ---
CC: [facility]. HISTORY AND PHYSICAL: DATE OF ADMISSION: 05/10/17 PRIMARY CARE PROVIDER: Physician from [facility], the patient does not remember the name. CHIEF COMPLAINT: Chest pain. Please note that the patient is unusually cheerful during my evaluation, laughing frequently, and a very poor historian. HISTORY OF PRESENT ILLNESS: The patient is a 61-year-old male with a history of hypertension, who presented to [facility] complaining of chest pain. When asked about the chest pain, he started laughing and stated that chest pain felt like a pinch and was localized right above his left nipple. He said that it lasted "just a couple of seconds." Due to the duration of his chest pain, it was impossible for the patient to figure out if the pain was pleuritic or not or if something was able to relieve the pain. The patient stated that he was sitting and talking with his sisters during that time. When the patient was asked what concerned about his pain, he stated nothing really but he was told in the past that whenever he has chest pain he should come into the ED to be evaluated. Dr. Altamirano evaluated the patient in the emergency department and recommended overnight observation to rule out angina. PAST MEDICAL HISTORY: 1. Hypertension. 2. History of osteoarthritis in bilateral knees. 3. History of knee surgery. That was obtained from the patient's medical records. The patient himself stated that he never had surgeries in his life. Although, the patient himself mentioned that he has no history of heart disease , from my review of medical records in 2010, he had a cardiac catheterization for congestive heart failure and chest pain. At that point, it was noted that he had an EF of 15% and severely dilated left ventricle as well as normal coronary arteries and moderate pulmonary hypertension. MEDICATIONS: The patient does not remember. From calling [facility] pharmacy, the patient had been on: 1. Indomethacin 50 mg t.i.d. p.r.n. 2. Lisinopril/hydrochlorothiazide 08/26.5 one tablet daily. ALLERGIES: No known drug allergies. FAMILY HISTORY: Positive for father who in his 60s of lung cancer. Mother is alive and well at the age of 96. SOCIAL HISTORY: The patient stated that he smoked 10 cigarettes a day and he has been doing so since he was a teenager. He drinks alcohol daily, but could not tell me the quantity. He denies any drug use. He lives alone and his sister, Wendy Cleary, is his surrogate. The patient also volunteers at [facility]. REVIEW OF SYSTEMS: Please see history of present illness. Once again, please note that the patient is a very poor nonspecific historian, frequently laughing. Currently, he denies any pain or shortness of breath. He has not had any fevers. All the remaining 14 systems were reviewed with the patient and were otherwise negative. PHYSICAL EXAMINATION GENERAL: The patient is a very pleasant 61-year-old male, who is in no acute distress. Alert, awake, and oriented x3. VITAL SIGNS: Blood pressure of 151/103, heart rate of 101 and regular, respiratory rate 17, oxygen saturation 99% on room air, temperature 98.4. HEENT: Head atraumatic, normocephalic. Eyes: Pupils equal and reactive to light and accommodation. Oropharynx clear. Mucosa is moist. NECK: Supple. No JVD. No bruit bilaterally. RESPIRATORY: Clear to auscultation bilaterally. CARDIOVASCULAR: Regular rate and rhythm. No murmur. ABDOMEN: Soft, nontender. Bowel sounds present in all 4 quadrants. EXTREMITIES: There is no edema. Pulses are +2 bilaterally. No clubbing or cyanosis. NEURO EVALUATION: Speech clear. Cranial nerves II through XII are grossly intact. Motor strength is 5/5 bilaterally. PSYCHIATRIC EVALUATION: Oriented x3 with no evidence of anxiety or depression, unusually cheerful. DIAGNOSTIC STUDIES/LAB DATA: Laboratory data showed white blood cell count of 9.9, hemoglobin of 14.0, hematocrit of 43, and platelets of 163. The patient's D-dimer was below 200. Sodium was 138, potassium 3.7, chloride 105, carbon dioxide 26, BUN 14, creatinine 0.91. Liver function tests were unremarkable. Bilirubin of 1.4, which is consistent with prior. Brain natriuretic peptide was 182 and troponin of 0.01. The patient's EKG showed sinus tachycardia with a heart rate of 100 beats per minute with voltage criteria for LVH and negative T-waves in lateral leads, which is comparable from EKG obtained in 2011. ASSESSMENT AND PLAN: 1. A 61-year-old male with history of congestive heart failure most likely due to alcohol abuse in 2010, who is a very poor historian and who presents today complaining of chest pain, very nonspecific, like a pinch right above his left nipple area. So far, his EKG is unchanged from prior and his troponin is negative. I discussed with the patient that over the weekend when unfortunately have no possibility of patient undergo cardiac stress test. The patient is going to be observed on telemetry monitored bed with followup troponins. Followup echocardiogram is going to be obtained in the morning. 2. In regards to the patient's tobacco use, the patient was offered nicotine replacement treatment, but he refused. He was counseled in regards to smoking cessation. 3. In regards to possibility of alcohol abuse. The patient has a history of alcohol abuse in the past. Currently, he is not willing to say how much he actually drinks. We will observe for signs of withdrawal. 4. For his hypertension. Currently, he is uncontrolled with blood pressure of 151/103. We will start the patient lisinopril and hydrochlorothiazide. 5. For deep venous thrombosis prophylaxis. The patient is going to be placed on heparin subcutaneously. 6. In regards to the patient's code status, his code status is full and his surrogate is his sister. TIME SPENT: Approximately 55 minutes was spent on admission of this patient, more than half that time was spent [id number] with the patient during the interview, physical exam. [id number]/[facility] #: [id number] KALE
[2017-05-10] MEDS ORDERED: Magnesium Sulfate 1 GM IV* 1 GM/100 ML BAG IV ONE (16:47)
[2017-05-10 17:06] LABS: Magnesium 1.8 mg/dL (1.9-2.7)
[2017-05-11] MEDS: Heparin VIAL(*) 5000 UNITS/ML VIAL (FIVE THOUSAND) SUBCUT SCH (06:01)
[2017-05-11] MEDS ORDERED: Aspirin Low Dose CHEW TAB* 81 MG PO SCH (09:00)
[2017-05-11] MEDS: Hydrochlorothiazide TAB* 25 MG PO SCH (09:10)
[2017-05-11] MEDS: Lisinopril TAB* 10 MG PO SCH (09:11)
--- NOTE | 2017-05-11 10:24 | PN ---
Subjective Date of Service: 05/11/17 Interval History: This is a 61 yo male patient who came to the hospital with report of "a few seconds" of a pinching sensation above the left nipple. Denies any accompanying symptoms. Denies any symptoms overnight, repeat CP, dyspnea. States, "I feel fine." We discussed his blood pressure; he states, "It's probably because I don' t take them. I forget." He reports that his doctor was fired from [place] and hasn't seen anyone in "a few years." Someone at [place] keeps refilling his meds , but he does not know who. 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 Telemetry: SR 80s-100s, with run of v-tach last night Family History: Unchanged from Admission Social History: Unchanged from Admission Past Medical History: Unchanged from Admission Objective Active Medications: Acetaminophen (Tylenol Tab*) 650 mg PO Q4H PRN PRN Reason: FEVER/PAIN Al Hydrox/Mg Hydrox/Simethicone (Maalox Plus*) 30 ml PO Q6H PRN PRN Reason: INDIGESTION Aspirin (Aspirin Low Dose Tab*) 81 mg PO DAILY [facility] Last Admin: 05/11/17 09:11 Dose: 81 mg Heparin Sodium (Porcine) (Heparin Vial(*)) 5,000 units SUBCUT Q8HR [facility] Last Admin: 05/11/17 06:01 Dose: 5,000 units Hydrochlorothiazide (Hydrodiuril Tab*) 12.5 mg PO DAILY [facility] Last Admin: 05/11/17 09:10 Dose: 12.5 mg Lisinopril (Prinivil Tab*) 20 mg PO DAILY [facility] Last Admin: 05/11/17 09:11 Dose: 20 mg Ondansetron HCl (Zofran Inj*) 4 mg IV Q4H PRN PRN Reason: NAUSEA/VOMITING Temazepam (Restoril Cap*) 15 mg PO BEDTIME PRN PRN Reason: INSOMNIA Vital Signs 05/10/17 05/10/17 05/10/17 15:04 20:07 22:46 Temperature 98.4 F 98.0 F Pulse Rate 102 103 95 Respiratory 18 18 16 Rate Blood Pressure 153/107 144/103 138/98 (mmHg) O2 Sat by Pulse 99 98 97 Oximetry 05/10/17 05/11/17 05/11/17 23:31 02:22 07:18 Temperature 98.3 F 98.7 F 98.0 F Pulse Rate 89 87 92 Respiratory 18 16 16 Rate Blood Pressure 126/90 128/82 136/101 (mmHg) O2 Sat by Pulse 99 94 100 Oximetry Oxygen Devices in Use Now: None Appearance: Male patient, lying in bed, watching TV, in NAD Eyes: No Scleral Icterus Ears/Nose/Mouth/Throat: Mucous Membranes Moist Neck: NL Appearance and Movements; NL JVP Respiratory: Symmetrical Chest Expansion and Respiratory Effort, Clear to Auscultation Cardiovascular: NL Sounds; No Murmurs; No JVD, RRR Abdominal: NL Sounds; No Tenderness; No Distention Extremities: No Edema, No Clubbing, Cyanosis Neurological: Alert and Oriented x 3, NL Muscle Strength and Tone Lines/Tubes/Other Access: Clean, Dry and Intact Peripheral IV Nutrition: Taking PO's Result Diagrams: 05/10/17 13:05 05/10/17 13:05 Assess/Plan/Problems-Billing Assessment: Mr. Cueva is a 61 yo male with a PMH of HTN, OA, and noted EF of 15% in 2010 from past medical records, who presented on 05/10 with concern for transient chest pain. - Patient Problems (1) Chest pain Code(s): R07.9 - CHEST PAIN, UNSPECIFIED Comment: Troponin flat at 0.01, no new changes seen on EKG since 2010 (negative T waves in lateral leads) Nonspecific transient chest pain Echocardiogram shows concern for EF 20-25%, reduced LV and RV function Cardiology consult requested Start carvedilol, spironolactone. Patient advised to quit ETOH and tobacco use. (2) HTN (hypertension) Code(s): I10 - ESSENTIAL (PRIMARY) HYPERTENSION Comment: Uncontrolled, secondary to medication non-adherence Continue lisinopril, HCTZ Add carvedilol, spironolactone (3) Osteoarthritis Code(s): M19.90 - UNSPECIFIED OSTEOARTHRITIS, UNSPECIFIED SITE Comment: PRN acetaminophen Supportive care (4) Tobacco abuse Code(s): Z72.0 - TOBACCO USE Comment: Patient advised to quit smoking Smoking cessation education ordered. (5) DVT prophylaxis Comment: SQ heparin Status and Disposition: OBV admit. Dc to home with close outpatient f/u.
--- NOTE | 2017-05-11 11:16 | ECHO ---
Patient: ALYSSA NAPIER [facility] Rec#: [id number] : 1955 Date: 05/11/2017 Age: 61y Height: 175.3 cm / 69.0 in Weight: 88.5 kg / 195.1 lbs Sex: M BSA: 2.04 Room#: 431 Admit Date#: 05/11/2017 Type: Inpatient Referring: Tiffany Hernandez MD Reading: Kole Kohler DO Machine Assistant: Brittani Abdullahi RN RDCS Transthoracic Echocardiogram Indication: Chest pain BP: 128/82 HR: 91 Rhythm: NSR Findings History: HTN, CHF, ETOH abuse Technical Comments: The study quality is fair. Completed at 1100. Left Ventricle: The left ventricular size is mild to moderately dilated. Mild concentric left ventricular hypertrophy is observed. There is global hypokinesis of the left ventricle with minor regional variation. There is severely decreased left ventricular systolic function. The estimated ejection fraction is 20-25%. Abnormal left ventricular diastolic function is observed. Left Atrium: The left atrium is mildly dilated. Right Ventricle: The right ventricular cavity size is normal. The right ventricular global systolic function is severely reduced.(moderate to severely reduced) Right Atrium: The right atrium is mildly dilated. Aortic Valve: The aortic valve is trileaflet. The aortic valve leaflets are mildly thickened. There is a trace of aortic regurgitation. There is no evidence of aortic stenosis. Mitral Valve: The mitral valve leaflets are mildly thickened. There is moderate mitral regurgitation. that is secondary/functional There is no evidence of mitral stenosis. Tricuspid Valve: The tricuspid valve leaflets are normal. There is mild tricuspid regurgitation. No pulmonary hypertension is noted. Pulmonic Valve: The pulmonic valve structure is not well visualized. There is a trace pulmonic regurgitation. There is no pulmonic stenosis. Pericardium: There is no significant pericardial effusion. Aorta: There is no dilatation of the ascending aorta. There is no dilatation of the aortic arch. There is no dilation of the aortic root. Pulmonary Artery: The main pulmonary artery is not well visualized. Venous: The inferior vena cava appears normal in size. There is a greater than 50% respiratory change in the inferior vena cava dimension. Conclusions The left ventricular size is mild to moderately dilated. Mild concentric left ventricular hypertrophy is observed. There is severely decreased left ventricular systolic function. There is global hypokinesis of the left ventricle with minor regional variation. The estimated ejection fraction is 20-25%. The left atrium is mildly dilated. The right ventricular cavity size is normal. The right ventricular global systolic function is moderate to severely reduced There is moderate secondary/functional mitral regurgitation. There is mild tricuspid regurgitation. No pulmonary hypertension is noted. No prior studies available for comparison at time of interpretation. Measurements Name Value Normal Range RVDdMajor (2D) 3 cm (2.2 - 4.4) RAd ISD 4CH 5.2 cm (3.4 - 4.9) RA (A4C)W 4.4 cm (2.9 - 4.6) IVSd (2D) 1.1 cm (0.6 - 1) LVPWd (2D) 1 cm (0.6 - 1) LVIDd (2D) 6.5 cm (3.6 - 5.4) LVIDs (2D) 5.7 cm - LV FS (2D) 12 % (25 - 45) Aortic Annulus 2 cm (1.4 - 2.6) Ao root diameter (2D) 2.9 cm (2.1 - 3.5) Ascending Ao 2.9 cm (2.1 - 3.4) Aortic arch 2.4 cm (1.8 - 3.4) LA dimension (AP) 2D 3.9 cm (2.3 - 3.8) LAd ISD 4CH 5.9 cm (2.9 - 5.3) LA ISD 4CH W 4.6 cm (2.5 - 4.5) Name Value Normal Range LA ESV SP 4CH (A/L) 65 ml - LA ESV SP 2CH (A/L) 66 ml - LA ESV BP (A/L) 68 ml - LA ESV BP (A/L) index 33.2 ml/m2 - LA ESV SP 4CH (MOD) 60 ml - LA ESV SP 2CH (MOD) 66 ml - Name Value Normal Range MV E-wave Vmax 0.88 m/sec - MV deceleration time 119 msec - MV A-wave Vmax 1.2 m/sec - MV E:A ratio 0.76 ratio - LV septal e' Vmax 0.06 m/sec - LV lateral e' Vmax 0.05 m/sec - LV E:e' septal ratio 14.7 ratio - LV E:e' lateral ratio 17.6 ratio - Name Value Normal Range AV Vmax 1.2 m/sec - AV VTI 22 cm - AV peak gradient 5.9 mmHg - AV mean gradient 3.6 mmHg - LVOT Vmax 0.77 m/sec - LVOT VTI 13.2 cm - LVOT peak gradient 2.4 mmHg - LVOT mean gradient 1.4 mmHg - Name Value Normal Range MR Vmax 5.2 m/sec - MR VTI 183.9 cm - MR volume (PISA) 66.2 ml - MR flow (PISA) 187 ml/sec - MR ERO 0.36 cm2 - MR PISA radius 0.9 cm - MR alias Vmax 35 cm/sec - Name Value Normal Range TR Vmax 2.7 m/sec - TR peak gradient 29 mmHg - RAP 3 mmHg - RVSP 32 mmHg - IVC diameter 1.9 cm - Name Value Normal Range PV Vmax 0.79 m/sec -
[2017-05-11] MEDS ORDERED: Spironolactone TAB* 25 MG PO SCH (11:30)
--- NOTE | 2017-05-11 11:31 | PN ---
Hospitalist Progress Note This is a 61 yo male patient who came to the hospital with report of "a few seconds" of a pinching sensation above the left nipple. Denies any accompanying symptoms. Denies any symptoms overnight, repeat CP, dyspnea. States, "I feel fine." We discussed his blood pressure; he states, "It's probably because I don' t take them. I forget." He reports that his doctor was fired from [facility] and hasn't seen anyone in "a few years." Someone at [facility] keeps refilling his meds , but he does not know who. Denies ever seeing a indirect sales representative. Telemetry: SR 80s-100s, with run of v-tach last night
[2017-05-11 11:46] VITALS: BP 129/97
--- NOTE | 2017-05-11 11:57 | CONSULT ---
Subjective Date of Service: 05/11/17 Interval History: Admission Date: 05/10/17 Consult date 05/11/2017: Provider: Hospitalist PMD: An provider, patient does not remember name CHIEF COMPLAINT: Chest pain. Reason for consult: Chest pain, cardiomyopathy HISTORY OF PRESENT ILLNESS: Mr. Cueva is 61-year-old man with a history of hypertension, alcohol abuse and a non-ischemic cardiomyopathy who presents with chest pain. It felt like a pinch lasting a few seconds around his nipple that happened every 20 or 25 minutes. It was not exertional. It has now resolved. He ruled out of ACS. He denies any palpitations, syncope, edema, dysnea. He rides his bicycle every day and is asymptomatic. He had 6 beat NSVT on telemetry yesterday but this was in the setting of uncontrolled BP 144/103 and not being on a beta-pawel. He states he does not always remember to take his medication every day. PAST MEDICAL HISTORY: 1. Hypertension. 2. Non-ischemic cardiomyopathy 2. History of osteoarthritis in bilateral knees. 3. History of knee surgery. MEDICATIONS: 1. Indomethacin 50 mg t.i.d. p.r.n. 2. Lisinopril/hydrochlorothiazide 20/12.5 one tablet daily. ALLERGIES: No known drug allergies. FAMILY HISTORY: Positive for father who in his 60s of lung cancer. Mother is alive and well at the age of 96. SOCIAL HISTORY: The patient stated that he smoked 10 cigarettes a day and he has been doing so since he was a teenager. He drinks alcohol daily, at least a 6 pack and marijuana every day. He denies any other drug use currently although there is a history of crack cocaine use. He lives alone and his sister, Wendy Celary, is his surrogate. Not , has one child in [place]. The patient also volunteers at [facility]. Has worked at [employer] in the past. Medications Active Medications: Acetaminophen (Tylenol Tab*) 650 mg PO Q4H PRN PRN Reason: FEVER/PAIN Al Hydrox/Mg Hydrox/Simethicone (Maalox Plus*) 30 ml PO Q6H PRN PRN Reason: INDIGESTION Aspirin (Aspirin Low Dose Tab*) 81 mg PO DAILY SANA Last Admin: 05/11/17 09:11 Dose: 81 mg Carvedilol (Coreg Tab*) 12.5 mg PO BID [facility] Heparin Sodium (Porcine) (Heparin Vial(*)) 5,000 units SUBCUT Q8HR [facility] Last Admin: 05/11/17 06:01 Dose: 5,000 units Hydrochlorothiazide (Hydrodiuril Tab*) 12.5 mg PO DAILY [facility] Last Admin: 05/11/17 09:10 Dose: 12.5 mg Lisinopril (Prinivil Tab*) 20 mg PO DAILY [facility] Last Admin: 05/11/17 09:11 Dose: 20 mg Ondansetron HCl (Zofran Inj*) 4 mg IV Q4H PRN PRN Reason: NAUSEA/VOMITING Spironolactone (Aldactone Tab*) 25 mg PO DAILY [facility] Temazepam (Restoril Cap*) 15 mg PO BEDTIME PRN PRN Reason: INSOMNIA Home Medications: Lisinopril/HCTZ 20/12.5(NF) 1 tab PO DAILY 04/03/17 [History Confirmed 05/10/17] Review of Systems - Measurements Intake and Output: Intake and Output Last 24 Hours 05/09/17 05/10/17 05/11/17 05/12/17 06:59 06:59 06:59 06:59 Intake Total 924 350 Balance 924 350 Weight 194 lb Intake: IV Fluids 14 IVPB 110 Oral 800 350 Other: Estimated Void Medium # Bowel Movements 0 # Voids 4 - Review of Systems Constitutional Symptoms: Negative: Weight Gain, Weight Loss, Weakness, Fatigue, Fever, Night Sweats Dermatology: Negative: Normal, Rash - , Skin Lesions, Skin Lumps, Other HEENT: Negative: Change in Hearing, Vertigo, Tinnitus Eyes: Negative: Change in Vision, Double Vision Thyroid: Negative: Cold Intolerance, Heat Intolerance, Tremor, Frequent Defecation, Constipation, Palpitations, Primary Hypothyroidism, Primary Hyperthyroidism, Weight Loss, Weight Gain Pulmonary: Negative: Cough, Sputum, Hemoptysis, Respiratory Distress, Shortness of Breath, Asthma Cardiology: Positive: Chest Pain Negative: Shortness of Breath, Palpitations, Swelling of Ankles, Peripheral Vascular Dis, Edema, Faintness, Syncope, Claudication, Paroxysmal Nocturnal Dyspnea, Orthopnea Gastroenterology: Negative: Abdominal Pain, Nausea, Vomiting, Anorexia, Indigestion, Difficulty Swallowing, Heartburn, Constipation, Diarrhea, Blood in Stools, Haematemesis, Melena Genital - Urinary: Negative: Dysuria, Hematuria Musculoskeletal: Negative: Joint Pain, Joint Stiffness, Low Back Pain Endocrinology: Negative: Thyroid Problems, Obesity, Diabetes, Hyperglycemia, Hypoglycemia, Polydipsia, Polyuria Hematologic/Lymphatic: Negative: Anemia, Easy Brusing, Hx Leukemia, Hx Lymphoma Neurology: Negative: Headaches, Migraines, Change in Vision, Diplopia, Dizziness, Change in Balancing, Change in Coordination, Change in Memory, Change in Speech , Change in Sphincter Function, Change in Walking, Numbness\Paresthesiae, Unexplained Weakness, Hx of Stroke\TIA, Hx Seizures Psychiatry: Negative: Depressed Mood, Adhedonia, Unusual Anxiety Allergic/Immunologic: Negative: Hx Anaphylaxis, Hx Angioedema, Hx HIV, Immunocompromise Review of Systems Statement: All other review of systems negative, unless stated above. Objective Vital Signs: Temp Pulse Resp BP Pulse Ox 98.0 F 90 16 129/97 100 05/11/17 11:36 05/11/17 11:36 05/11/17 11:36 05/11/17 11:36 05/11/17 11:36 Oxygen Devices in Use Now: None Appearance: nad, pleasant Ears/Nose/Mouth/Throat: Clear Oropharnyx, Mucous Membranes Moist Neck: NL Appearance and Movements; NL JVP, Trachea Midline Respiratory: Symmetrical Chest Expansion and Respiratory Effort, Clear to Auscultation Cardiovascular: RRR Abdominal: NL Sounds; No Tenderness; No Distention Extremities: No Edema Skin: No Rash or Ulcers Neurological: Alert and Oriented x 3 Laboratory Results: 05/10/17 13:05 05/10/17 13:05 INR (Anticoag Therapy) 0.90 (0.89-1.11) 05/10/17 13:05 APTT 30.5 seconds (26.0-36.3) 05/10/17 13:05 Total Bilirubin 1.40 mg/dL (0.2-1.0) H 05/10/17 13:05 AST 20 U/L (13-39) 05/10/17 13:05 ALT 16 U/L (7-52) 05/10/17 13:05 Alkaline Phosphatase 67 U/L (34-104) 05/10/17 13:05 B-Natriuretic Peptide 182 pg/mL (-100) H 05/10/17 13:05 Total Protein 7.4 g/dL (6.4-8.9) 05/10/17 13:05 Albumin 4.6 g/dL (3.2-5.2) 05/10/17 13:05 Globulin 2.8 g/dL (2-4) 05/10/17 13:05 Albumin/Globulin Ratio 1.6 (1-3) 05/10/17 13:05 05/10/17 05/10/17 05/10/17 13:05 15:06 20:34 Troponin I 0.01 0.01 0.01 Diagnostic Imaging: TTE 05/11/2017: LV mild-moderately dilated, mild LVH, LVEF 20-25% global hypokinesis with minor segmental variation, mild LA dilation, RV normal sized with moderate-severely reduced RV function, moderate secondary/functional MR, normal estimated PASP Coronary angiogram 07/2011: LVEF 15%, normal coronary arteries. EKG Data: EKG 05/10/2016 : SR, LVH with repolarization abnormalities unchanged from 07/2011 Assessment/Plan In summary, Mr. Cueva is 61-year-old man with a history of hypertension, alcohol abuse ongoing and a non-ischemic cardiomyopathy, NYHA class 1 since at least 2010 who presents with non-cardiac several seconds of chest pinching, ruled out for ACS. BP remains elevated and incomplete adherence to medication. - It was discussed and patient expressed understanding that if he does not quit drinking alcohol immediately, take medications exactly as prescribed and adhere with follow up plans and recommendations he is at a relatively much higher risk of things including but not limited to sudden . We discussed that after a period of time on maximally tolerated guideline directed medical therapy (which he is not currently on), he may be eligible for a primary prevention ICD. - Continue lisinopril 20 mg PO daily - Continue hctz 12.5 mg PO daily for now, we may transition him off this medicine in the near future to allow for optimization of systolic HF medications. - Start coreg 12.5 mg PO BID - Start aldactone 25 mg PO daily - Needs BMP within a week - Will arrange cardiology follow up in about 2 weeks to assess tolerance and further optimize cardiomyopathy medications, Thank you for allowing me to participate in the cardiovascular care of this patient. Please do not hesitate to contact me with questions or concerns.
[2017-05-11] MEDS ORDERED: Carvedilol TAB* 6.25 MG PO SCH (12:00)
--- NOTE | 2017-05-12 05:46 | DS ---
CC: John Nolan * MEDICINE DISCHARGE SUMMARY: DATE OF ADMISSION: 05/10/17 DATE OF DISCHARGE: 05/11/17 PROVIDER: Nella Leo NP ATTENDING PROVIDER: Tiffany Hernandez MD* (as dictated by Nella Leo NP) . CONSULTING PHYSICIAN: Dr. Kole Kohler, Cardiology. PRIMARY CARE PROVIDER: An Lopez, provider unknown at this time. PRIMARY DISCHARGE DIAGNOSES: 1. Chronic nonischemic cardiomyopathy. 2. Chest pain. 3. Uncontrolled high blood pressure. SECONDARY DISCHARGE DIAGNOSES: 1. Hypertension. 2. History of osteoarthritis in bilateral knees. 3. History of knee surgery. 4. Per medical record, history of congestive heart failure, had a cardiac cath in 2010 that revealed an EF of 15% and severely dilated left ventricle as well as normal coronary arteries and moderate pulmonary hypertension. MEDICATIONS: Home medications at discharge: 1. Lisinopril/hydrochlorothiazide 20/12.5 one tab daily. 2. Spironolactone 25 mg daily. 3. Carvedilol 12.5 mg b.i.d. HOSPITAL COURSE OF STAY: For full details, please refer to the H and P provided by Dr. Tiffany Hernandez. In summary, Mr. Cueva presented to the ED on 05/10/17, with reported chest pain that felt like a pinch on the left side of his chest that lasted for a couple of seconds. There were no accompanied symptoms. The patient reported to the hospital because he states he was told that when he has chest pain, he should be evaluated. The patient had negative troponins. His EKG was similar to previous EKGs with no acute ischemic changes ; however, he was admitted for further observation, and an echocardiogram was ordered. The patient had an echocardiogram on 05/11/17, prior to this he has had 3 negative troponins of 0.01 x3. He did notably have a 6-beat run of V-tach and was given IV magnesium with no further episodes. However, the patient's transthoracic echocardiogram showed concern for left and right ventricular dysfunction with severely decreased left ventricular systolic function and right ventricular global systolic function moderately to severely reduced. The patient has an estimated EF of 20% to 25% and global hypokinesis of the left ventricle with minor regional variation. He also has moderate secondary class functional mitral regurgitation and there is mild tricuspid regurgitation. No pulmonary hypertension is noted. The patient was seen in consultation by Cardiology. The patient was advised several times of the need to take his medications as prescribed. The patient does state that he often forgets to take his medications and has no system in place to remind him. He has not been to see his primary care provider for several years, stating that his original provider was fired, and he does not know who has taken over his care. Here in the hospital, his blood pressure has been poorly controlled. The patient initially presented with blood pressures of systolics in the 140s to 150s and diastolic in 100s to 110s. He has also been advised to stop smoking and to cease alcohol use in order to prevent further damage to his heart. Given that the patient's cardiomyopathy is chronic and nonischemic, per Cardiology, he does not require a LifeVest this time. He also would require at least 9 months of appropriate medical management before electing to have an ICD as primary prevention. In the interim, we have continued him on lisinopril and hydrochlorothiazide, which he had been prescribed previously. He has also been started on Coreg and Aldactone. He will follow up with Cardiology within 2 weeks for further adjustment. We will check a BMP to monitor for hyperkalemia, given dual therapy with spironolactone and lisinopril. Again, this information and the gravity of medical concern was reviewed with the patient by Hospital Medicine and Cardiology, as well as by the nursing staff. I have also asked case management to refer the patient to [facility] for assistance with medication organization, although the patient previously declined any offers of home nursing assistance. CONCERNS AT DISCHARGE: Mr. Cueva will be discharged to home on 05/11/17. OUTPATIENT FOLLOWUP NEEDS: He is to follow up with the PCP. I have asked for the [facility] Medicine Director Of Rehabilitative Services to please obtain a follow-up appointment for the patient and call him with the appointment time, as I do not expect that he will call on his own. He is also to follow up with Cardiology, who will also help arrange the patient for a followup appointment. DIET: Heart-healthy diet. Education and teaching provided regarding appropriate diet to follow. ACTIVITY: As tolerated. CONDITION: Fair and somewhat guarded, given the patient's history of noncompliance. DISPOSITION: To home. TIME SPENT: Time spent on this discharge was approximately 55 minutes. Again, this is only a brief summary of the patient's hospital course of stay. For full details, please refer to the full medical record. If you have any further questions or need further assistance, please feel free to contact me at [phone]. NELLA LEO NP [id number]/LIAM #: [id number] KALE
== END 2017-05-11 13:50 | disposition home or self-care (01) ==
LOC: ED 11:43 → MEDTELE 13:56
PROVIDERS: ADMIT Internal Medicine; ATTEND Internal Medicine
DX: R07.89 Other chest pain (principal); I42.8 Other cardiomyopathies; I10 Essential (primary) hypertension; I47.2 Ventricular tachycardia; F10.10 Alcohol abuse, uncomplicated; F17.210 Nicotine dependence, cigarettes, uncomplicated; M17.0 Bilateral primary osteoarthritis of knee
CPT/HCPCS: 36415; 71010; 80053; 83605; 83735; 83880; 84484; 85025; 85379; 85610; 85730; 93306; 99283; 99406; A9270-GY; G0378; J1644; J3475

== ENCOUNTER → 2017-06-16 07:25 | Emergency (ER) | payer MEDICARE, MEDICAID ==
--- NOTE | 2017-06-16 08:39 | ED ---
Adrienne Plascencia Thomas, scribed for Jcarlos Lebron MD on 06/16/17 at 0749 . Throat Pain/Nasal Congestion - HPI Summary HPI Summary: The pt is a 61 y/o M presenting to the ED c/o a sore throat that began two days ago. The patient describes the pain as sandpaper. The pain is constant. The pt rates the pain 8/10. The patient has treated the pain with nothing [employer]. Pt additionally c/o a cough. Pt denies postnasal drip and sinus congestion. PMHx: HTN, osteoarthritis. SHx: current smoker, alcohol use. The patient is a volunteer at [employer] - History of Current Complaint Chief Complaint: EDThroatPain Time Seen by Provider: 06/16/17 07:41 Hx Obtained From: Patient Onset/Duration: Lasting Days - sore throat onset two days ago, Still Present Severity: Moderate Associated Signs And Symptoms: Negative: Sinus Discomfort, Nasal Discharge Cough: Productive Related History: Smoking - Allergies/Home Medications Allergies/Adverse Reactions: Allergies Allergy/AdvReac Type Severity Reaction Status Date / Time No Known Allergies Allergy Verified 06/16/17 07:26 PMH/Surg Hx/FS Hx/Imm Hx Previously Healthy: No Endocrine/Hematology History: Denies: Hx Diabetes, Hx Thyroid Disease Cardiovascular History: Reports: Hx Hypertension Denies: Hx Peripheral Vascular Disease Musculoskeletal History: Reports: Hx Orthopedic Injury, Other Musculoskeletal History - osteoarthritis bilateral knees Sensory History: Denies: Hx Contacts or Glasses, Hx Legally Blind, Hx Deafness, Hx Hearing Aid Opthamlomology History: Denies: Hx Contacts or Glasses, Hx Legally Blind Neurological History: Denies: Hx Headaches, Hx Seizures, Hx Transient Ischemic Attacks (TIA) - Surgical History Surgery Procedure, Year, and Place: Knee scope Infectious Disease History: No Infectious Disease History: Denies: Traveled Outside the [place] in Last 30 Days - Family History Known Family History: Positive: Hypertension Negative: Cardiac Disease - Social History Alcohol Use: None Substance Use Type: Reports: None Hx Tobacco Use: Yes Smoking Status (MU): Light Every Day Tobacco Smoker Review of Systems Negative: Fever Positive: Sore Throat - onset two days ago. Negative: Other - NEGATIVE: postnasal drip, sinus congestion Positive: Cough All Other Systems Reviewed And Are Negative: Yes Physical Exam Triage Information Reviewed: Yes Vital Signs On Initial Exam: Initial Vitals Temp Pulse Resp BP Pulse Ox 97.0 F 88 16 119/84 100 06/16/17 07:26 06/16/17 07:26 06/16/17 07:26 06/16/17 07:26 06/16/17 07:26 Vital Signs Reviewed: Yes Appearance: Positive: Well-Appearing, No Pain Distress Skin: Positive: Warm, Skin Color Reflects Adequate Perfusion Head/Face: Positive: Normal Head/Face Inspection ENT: Positive: Pharyngeal erythema Neck: Positive: Supple, Nontender Respiratory/Lung Sounds: Positive: Clear to Auscultation, Breath Sounds Present Cardiovascular: Positive: RRR. Negative: Murmur Abdomen Description: Positive: Nontender Musculoskeletal: Positive: Strength/ROM Intact Neurological: Positive: Sensory/Motor Intact, Alert, Oriented to Person Place, Time, CN Intact II-III Psychiatric: Positive: Normal - Aaron Coma Scale Best Eye Response: 4 - Spontaneous Best Motor Response: 6 - Obeys Commands Best Verbal Response: 5 - Oriented Diagnostics - Vital Signs Vital Signs Temp Pulse Resp BP Pulse Ox 06/16/17 07:26 97.0 F 88 16 119/84 100 - Laboratory Lab Statement: Any lab studies that have been ordered have been reviewed, and results considered in the medical decision making process. EENT Course/Dx - Course Assessment/Plan: The pt is a 61 y/o M with a sore throat that began two days ago. He has a cough but no postnasal drip or sinus congestion. Rapid strep is negative. The patient is diagnosed with a URI. He is stable and will be discharged home. He was given a work release. He will follow up with primary care. Pt agreeable to this plan. - Diagnoses Provider Diagnoses: URI (upper respiratory infection) Discharge - Discharge Plan Condition: Good Disposition: HOME Patient Education Materials: Upper Respiratory Infection (ED) Forms: *Work Release Referrals: Dianne Emerson PA [Primary Care Provider] - The documentation as recorded by the Adrienne mckeon Thomas accurately reflects the service I personally performed and the decisions made by , Jcarlos Lebron MD.
[2017-06-16 08:50] VITALS: BP 111/81
== END | disposition home or self-care (01) ==
LOC: ED 07:25
DX: J06.9 Acute upper respiratory infection, unspecified (principal); Z72.0 Tobacco use; I10 Essential (primary) hypertension; M19.90 Unspecified osteoarthritis, unspecified site
CPT/HCPCS: 87651; 99281

== ENCOUNTER 2018-03-17 11:24 | Emergency (ER) | payer MEDICARE, MEDICAID ==
[2018-03-17 12:08] VITALS: BP 160/104
--- NOTE | 2018-03-17 12:09 | ED ---
Hypertension - HPI Summary HPI Summary: Patient presents to the ED with concern for his high blood pressure. Current BP 156/99 in room. Taking medications as prescribed. He notes to a very mild STAHL 1/10 over the past 2-3 days and concerned this was d/t his HTN. Denies any other complaints. Denies any visual changes, chest pain, palpitations or shortness of breath. He is unsure who his PCP is and feels that he may need a new one. Has been taking lisinopril/hydrochlorothiazide and losartan regularly. Denies any other complaints at this time. Symptoms are aggravated with nothing and alleviated with nothing. He states he only took his blood pressure twice of the past 3 days and it was elevated each time, hovering around 160/90-100. - History of Current Complaint Chief Complaint: EDHypertension Stated Complaint: HEADACHE Time Seen by Provider: 03/17/18 11:37 Hx Obtained From: Patient Onset/Duration: Started Hours Ago Timing: Constant Alleviating Factor(s): Rest Associated Signs & Symptoms: Negative - Risk Factors Cardiac Risk Factors: Hypertension, Smoking - Allergies/Home Medications Allergies/Adverse Reactions: Allergies Allergy/AdvReac Type Severity Reaction Status Date / Time No Known Allergies Allergy Verified 03/17/18 11:35 PMH/Surg Hx/FS Hx/Imm Hx Previously Healthy: Yes Endocrine/Hematology History: Denies: Hx Diabetes, Hx Thyroid Disease Cardiovascular History: Reports: Hx Hypertension Denies: Hx Peripheral Vascular Disease Musculoskeletal History: Reports: Hx Orthopedic Injury, Other Musculoskeletal History - osteoarthritis bilateral knees Sensory History: Denies: Hx Contacts or Glasses, Hx Legally Blind, Hx Deafness, Hx Hearing Aid Opthamlomology History: Denies: Hx Contacts or Glasses, Hx Legally Blind Neurological History: Denies: Hx Headaches, Hx Seizures, Hx Transient Ischemic Attacks (TIA) - Surgical History Surgery Procedure, Year, and Place: Knee scope - Immunization History Hx Pertussis Vaccination: No Immunizations Up to Date: Unable to Obtain/Confirm Infectious Disease History: No Infectious Disease History: Denies: Traveled Outside the [place] in Last 30 Days - Family History Known Family History: Positive: Hypertension Negative: Cardiac Disease - Social History Occupation: Employed Full-time Lives: Alone Alcohol Use: Occasionally Alcohol Amount: 3-9 drinks on weekends Hx Substance Use: Yes Substance Use Type: Reports: Marijuana Hx Tobacco Use: Yes Smoking Status (MU): Light Every Day Tobacco Smoker Review of Systems Negative: Fever, Chills, Fatigue, Skin Diaphoresis Negative: Photophobia, Blurred Vision, Diplopia Negative: Palpitations, Chest Pain Genitourinary: Negative Positive: no symptoms reported, see HPI Negative: Arthralgia, Myalgia Skin: Negative Positive: Headache All Other Systems Reviewed And Are Negative: Yes Physical Exam Triage Information Reviewed: Yes Vital Signs On Initial Exam: Initial Vitals Temp Pulse Resp BP Pulse Ox 97.7 F 87 16 162/104 99 03/17/18 11:32 03/17/18 11:32 03/17/18 11:32 03/17/18 11:32 03/17/18 11:32 Vital Signs Reviewed: Yes Appearance: Positive: Well-Appearing, Well-Nourished Skin: Positive: Warm, Skin Color Reflects Adequate Perfusion Head/Face: Positive: Normal Head/Face Inspection Eyes: Positive: EOMI, ARPITA, Conjunctiva Clear Respiratory/Lung Sounds: Positive: Clear to Auscultation, Breath Sounds Present Cardiovascular: Positive: Normal, RRR, Pulses are Symmetrical in both Upper and Lower Extremities Musculoskeletal: Positive: Strength/ROM Intact Neurological: Positive: Sensory/Motor Intact, Speech Normal Psychiatric: Positive: Normal, Affect/Mood Appropriate AVPU Assessment: Alert Diagnostics - Vital Signs Vital Signs Temp Pulse Resp BP Pulse Ox 03/17/18 11:32 97.7 F 87 16 162/104 99 - Laboratory Lab Statement: Any lab studies that have been ordered have been reviewed, and results considered in the medical decision making process. Hypertension Course/Dx - Course Course Of Treatment: I discussed with the patient at length cessation of smoking and spoking may be the cause of his headaches. He states he also drinks beer daily. He continues to take his hypertension medications, but is unsure who his PCP as it has not followed up for several years. I've advised he continue to take his blood pressure medications but his BP is not high enough to require change medications are an increase of medications. Likely BP elevated due to a slight headache over the past 2 days. He is encouraged to drink a lot of fluids as he may be dehydrated due to the weather. He will follow up with a new PCP and I have given him information for Amy Ness. - Diagnoses Provider Diagnoses: Hypertension, Headache Discharge - Sign-Out/Discharge Documenting (check all that apply): Discharge/Admit/Transfer - Discharge Plan Condition: Stable Disposition: HOME Patient Education Materials: How to Stop Smoking (ED), Hypertension (ED) Referrals: Dianne Emerson PA [Primary Care Provider] - Additional Instructions: Contact: Physician Referral Center at [facility] Physician Wood Cutter or [phone] E-mail address: [email or web address] DO NOT SMOKE DRINK PLENTY OF WATER - Billing Disposition and Condition Condition: STABLE Disposition: Home
== END 2018-03-17 12:07 | disposition home or self-care (01) ==
LOC: ED 11:24
DX: I10 Essential (primary) hypertension (principal); R51 Headache; F17.200 Nicotine dependence, unspecified, uncomplicated; Z79.899 Other long term (current) drug therapy
CPT/HCPCS: 99282

== ENCOUNTER 2018-07-31 11:52 | Emergency (ER) | payer MEDICARE, MEDICAID ==
--- NOTE | 2018-07-31 12:01 | ED ---
Lower Extremity - HPI Summary HPI Summary: Patient is a 62 y/o M w/ c/o right great toe pain for the past week. He states he is fairly sure he did not injury it. Patient reports aggravation of pain with ambulation. No pain is noted elsewhere. Swelling is denied. Patient reports taking ibuprofen last night. No PMHx of diabetes, PMHx of arthritis in knees. He states he had gout last year but cannot recall which foot it was located at. Upon review of medical records, it is noted that patient was diagnosed with gout at right great toe 03/2017. He states he is not on any medications for gout. Patient states he does not need crutches. Fever, chills, erythema at eyes, sore throat, chest pain, SOB, cough, abdominal pain, N/V, dysuria, hematuria, myalgia, edema, rash and dizziness are not reported. On triage, pain is rated 5/10, nothing additional is noted to aggravate/alleviate Sx. Home medications and allergies are reviewed. - History of Current Complaint Chief Complaint: EDExtremityLower Stated Complaint: RIGHT FOOT BIG TOE PAIN Time Seen by Provider: 07/31/18 11:58 Hx Obtained From: Patient Mechanism Of Injury: Unknown - patient states he is fairly sure he did not injury toe Onset of Pain: Days - 7 days, Prior to Arrival Onset/Duration: Still Present Severity Currently: Moderate - 5/10 Pain Intensity: 5 Pain Scale Used: 0-10 Numeric - 5/10 Timing: Constant, Lasting Days - seven days Location: Is Discrete @ - right great toe Associated Signs And Symptoms: Positive: Other - NEGATIVE - CHILLS, ERYTHEMA OF EYES, SORE THROAT, CHEST PAIN, SOB, COUGH, N/V DYSURIA, HEMATURIA, MYALGIA, RASH. Negative: Swelling, Bruising, Fever, Dizziness, Abdominal Pain Aggravating Factor(s): Ambulation Alleviating Factor(s): Nothing - Allergies/Home Medications Allergies/Adverse Reactions: Allergies Allergy/AdvReac Type Severity Reaction Status Date / Time No Known Allergies Allergy Verified 07/31/18 11:56 PMH/Surg Hx/FS Hx/Imm Hx Endocrine/Hematology History: Denies: Hx Diabetes, Hx Thyroid Disease Cardiovascular History: Reports: Hx Hypertension Denies: Hx Peripheral Vascular Disease Musculoskeletal History: Reports: Hx Arthritis - OF KNEES , Hx Gout, Hx Orthopedic Injury, Other Musculoskeletal History - osteoarthritis bilateral knees Sensory History: Denies: Hx Contacts or Glasses, Hx Legally Blind Opthamlomology History: Denies: Hx Contacts or Glasses, Hx Legally Blind Neurological History: Denies: Hx Headaches, Hx Seizures, Hx Transient Ischemic Attacks (TIA) - Surgical History Surgery Procedure, Year, and Place: Knee scope Infectious Disease History: No Infectious Disease History: Denies: Traveled Outside the [place] in Last 30 Days - Family History Known Family History: Positive: Hypertension Negative: Cardiac Disease - Social History Alcohol Use: Occasionally Alcohol Amount: 3-9 drinks on weekends Hx Substance Use: Yes Substance Use Type: Reports: Marijuana Hx Tobacco Use: Yes Smoking Status (MU): Light Every Day Tobacco Smoker Review of Systems Negative: Fever, Chills Negative: Erythema Negative: Sore Throat Negative: Chest Pain Negative: Shortness Of Breath, Cough Negative: Abdominal Pain, Vomiting, Nausea Negative: dysuria, hematuria Positive: Other - POSITIVE - RIGHT GREAT TOE PAIN . Negative: Myalgia, Edema Negative: Rash Neurological: Other - NEGATIVE - DIZZINESS All Other Systems Reviewed And Are Negative: Yes Physical Exam - Summary Physical Exam Summary: Constitutional: Well-developed, Well-nourished, Alert. (-) Distressed Skin: Warm, Dry HENT: Normocephalic; Atraumatic Eyes: Conjunctiva normal Neck: Musculoskeletal ROM normal neck. (-) JVD, (-) Stridor, (-) Tracheal deviation Cardio: Rhythm regular, rate normal, Heart sounds normal; Intact distal pulses; The pedal pulses are 2+ and symmetric. Radial pulses are 2+ and symmetric. (-) Murmur Pulmonary/Chest wall: Effort normal. (-) Respiratory distress, (-) Wheezes, (-) Rales Abd: Soft, (-) epigastric tenderness, (-) Distension, (-) Guarding, (-) Rebound Musculoskeletal: (-) Edema (+) right podagra of right foot, no obvious bruising Lymph: (-) Cervical adenopathy Neuro: Alert, Oriented x3 Psych: Mood and affect Normal Triage Information Reviewed: Yes Vital Signs On Initial Exam: Initial Vitals Temp Pulse Resp BP Pulse Ox 98.1 F 90 18 149/98 94 07/31/18 11:53 07/31/18 11:53 07/31/18 11:53 07/31/18 11:53 18 11:53 Vital Signs Reviewed: Yes Diagnostics - Vital Signs Vital Signs Temp Pulse Resp BP Pulse Ox 07/31/18 11:53 98.1 F 90 18 149/98 94 - Laboratory Lab Statement: Any lab studies that have been ordered have been reviewed, and results considered in the medical decision making process. - Radiology right toe x-ray Radiology Interpretation Completed By: Radiologist Summary of Radiographic Findings: RIGHT GREAT TOE IMPRESSION: OSTEOARTHRITIS. NO ACUTE OSSEOUS INJURY. IF SYMPTOMS PERSIST, RECOMMEND REPEAT IMAGING. THIS REPORT WAS REVIEWED BY ED PHYSICIAN. Re-Evaluation - Re-Evaluation First Eval Re-Evaluation Time: 11:55 Comment: Discussed x-ray with patient. Patient was discharged to home and instructed to follow up with PCP, patient is agreeable with this plan. Lower Extremity Course/Dx - Course Course Of Treatment: Patient is a 62 y/o M w/ c/o right great toe pain for the past week. He states he is fairly sure he did not injury it. Patient reports aggravation of pain with ambulation. No pain is noted elsewhere. Swelling is denied. Patient reports taking ibuprofen last night. No PMHx of diabetes, PMHx of arthritis in knees. He states he had gout last year but cannot recall which foot it was located at. Upon review of medical records, it is noted that patient was diagnosed with gout at right great toe 03/2017. He states he is not on any medications for gout. On physical exam, patient is noted to have podagra of right foot, no obvious bruising. During ED course, patient was given Naprosyn tab 500 mg PO ONCE ONE, and Colcrys 0.6 mg PO DAILY ONE. RIGHT GREAT TOE IMPRESSION: OSTEOARTHRITIS. NO ACUTE OSSEOUS INJURY. IF SYMPTOMS PERSIST, RECOMMEND REPEAT IMAGING. Discussed x-ray with patient. Patient was discharged to home and instructed to follow up with PCP, patient is agreeable with this plan. Dx of gout and osteoarthritis. - Diagnoses Provider Diagnoses: Osteoarthritis, Gout Discharge - Sign-Out/Discharge Documenting (check all that apply): Patient Departure - discharge - Discharge Plan Condition: Stable Disposition: HOME Prescriptions: Colchicine* [Colcrys*] 0.6 mg PO DAILY #14 tab Naproxen TAB* [Naprosyn 250 mg TAB*] 500 mg PO Q8H PRN #30 tab PRN Reason: Pain - Severe Patient Education Materials: Osteoarthritis (ED), Gout (ED) Referrals: [facility] [Outside] - 2 Days Dianne Emerson PA [Primary Care Provider] - 2 Days Additional Instructions: RETURN TO EMERGENCY DEPARTMENT FOR ANY NEW OR WORSENING SYMPTOMS. FOLLOW UP WITH PRIMARY CARE PHYSICIAN IN 1-2 DAYS. - Billing Disposition and Condition Condition: STABLE Disposition: Home - Attestation Statements Document Initiated by Scribe: Yes Documenting Scribe: SOURAV STEPHENS Provider For Whom Carol is Documenting (Include Credential): JOSE CLEMENTS MD Scribe Attestation: SOURAV Plascencia , scribed for JOSE CLEMENTS MD on 08/03/18 at 2001. Scribe Documentation Reviewed: Yes Provider Attestation: The documentation as recorded by the SOURAV mckeon accurately reflects the service I personally performed and the decisions made by me, JOSE CLEMENTS MD
[2018-07-31] MEDS ORDERED: Naproxen TAB* 250 MG PO ONE (12:06)
[2018-07-31] MEDS ORDERED: Colchicine* 0.6 MG TAB PO ONE (12:06)
[2018-07-31 12:56] VITALS: BP 150/93
== END 2018-07-31 12:55 | disposition home or self-care (01) ==
LOC: ED 11:52
DX: M10.071 Idiopathic gout, right ankle and foot (principal); M19.071 Primary osteoarthritis, right ankle and foot; F17.200 Nicotine dependence, unspecified, uncomplicated
CPT/HCPCS: 99282; A9270-GY

== ENCOUNTER 2018-12-09 11:30 | Emergency (ER) | payer MEDICARE, MEDICAID ==
[2018-12-09 13:38] VITALS: BP 154/82
--- NOTE | 2018-12-09 13:47 | ED ---
Lower Extremity - HPI Summary HPI Summary: patient is a 63-year-old male with history of gout presenting to the ED with right toe pain. He endorses pain over the MCP joint without radiation into the great toe otherwise. Denies any erythema or warmth to the area. Symptoms started suddenly approximately 2 days ago and has been worsening. He states he has not been taking any medicine for this, has been prescribed medication the past but states he is "out." He is unsure of the medications he took in the past. He states he also has not changed his diet due to the symptoms. He takes no medications at baseline. - History of Current Complaint Chief Complaint: EDExtremityLower Stated Complaint: TOE PER PT Time Seen by Provider: 12/09/18 11:48 Hx Obtained From: Patient Onset of Pain: Days Onset/Duration: Resolved Severity Initially: Moderate Severity Currently: Moderate Pain Intensity: 0 Pain Scale Used: NIPS (Peds Only) Timing: Constant Location: Is Discrete @ - great right toe pain most notably to the R medial side Character Of Pain: Aching Associated Signs And Symptoms: Negative: Swelling, Redness, Bruising, Weakness Aggravating Factor(s): Standing, Ambulation Alleviating Factor(s): Rest Able to Bear Weight: Yes - Risk Factors Gout Risk Factors: Age Over 40, Male, Hypertension, Hyperlipidemia, Peripherial Vascular Disease DVT Risk Factors: Negative Septic Arthritis Risk Factor: Negative - Allergies/Home Medications Allergies/Adverse Reactions: Allergies Allergy/AdvReac Type Severity Reaction Status Date / Time No Known Allergies Allergy Verified 12/09/18 11:47 PMH/Surg Hx/FS Hx/Imm Hx Previously Healthy: Yes Endocrine/Hematology History: Denies: Hx Diabetes, Hx Thyroid Disease Cardiovascular History: Reports: Hx Hypertension Denies: Hx Peripheral Vascular Disease Musculoskeletal History: Reports: Hx Arthritis - OF KNEES , Hx Gout, Hx Orthopedic Injury, Other Musculoskeletal History - osteoarthritis bilateral knees Sensory History: Denies: Hx Contacts or Glasses, Hx Legally Blind Opthamlomology History: Denies: Hx Contacts or Glasses, Hx Legally Blind Neurological History: Denies: Hx Headaches, Hx Seizures, Hx Transient Ischemic Attacks (TIA) - Surgical History Surgery Procedure, Year, and Place: Knee scope - Immunization History Hx Pertussis Vaccination: No Immunizations Up to Date: Yes Infectious Disease History: No Infectious Disease History: Denies: Traveled Outside the [place] in Last 30 Days - Family History Known Family History: Positive: Hypertension Negative: Cardiac Disease - Social History Occupation: Unemployed Lives: With Family Alcohol Use: Occasionally Alcohol Amount: 3-9 drinks on weekends Hx Substance Use: Yes Substance Use Type: Reports: Marijuana Hx Tobacco Use: Yes Smoking Status (MU): Light Every Day Tobacco Smoker Review of Systems Constitutional: Negative Negative: Fever, Chills, Fatigue, Skin Diaphoresis Negative: Palpitations, Chest Pain Negative: Shortness Of Breath, Cough Genitourinary: Negative Positive: no symptoms reported, see HPI Positive: Arthralgia - great right toe pain most notably to the R medial side Negative: Rash, Bruising Neurological: Negative All Other Systems Reviewed And Are Negative: Yes Physical Exam Vital Signs On Initial Exam: Initial Vitals Temp Pulse Resp BP Pulse Ox 98.1 F 103 16 165/110 94 12/09/18 11:45 12/09/18 11:45 12/09/18 11:45 12/09/18 11:45 12/09/18 11:45 Diagnostics - Vital Signs Vital Signs Temp Pulse Resp BP Pulse Ox 12/09/18 13:35 98.1 F 72 16 154/82 98 12/09/18 11:45 98.1 F 103 16 165/110 94 - Laboratory Lab Statement: Any lab studies that have been ordered have been reviewed, and results considered in the medical decision making process. Lower Extremity Course/Dx - Course Course Of Treatment: On arrival into the ED, patient is complaining of pain to the right MCP joint most notably to the medial side over an obvious bunion. I discussed with the patient this may be due to his gout, however this could be inflammation and irritation from his bunion. I've advised him to seek further assessment by a crook operator as well as I have given him indomethacin for acute gout flareup. He is encouraged a low purine diet. - Diagnoses Provider Diagnoses: Gout Discharge - Sign-Out/Discharge Documenting (check all that apply): Patient Departure Patient Received Moderate/Deep Sedation with Procedure: No - Discharge Plan Condition: Stable Disposition: HOME Prescriptions: Indomethacin CAP* [Indocin CAP*] 50 mg PO TID PRN #15 cap PRN Reason: Pain Patient Education Materials: Bunion (ED), Gout (ED) Referrals: Dianne Emerson PA [Primary Care Provider] - Additional Instructions: Indomethacin 3 times daily as needed for pain Please follow-up with your PCP about a podiatry referral if symptoms persist - Billing Disposition and Condition Condition: STABLE Disposition: Home
== END 2018-12-09 13:35 | disposition home or self-care (01) ==
LOC: ED 11:30
DX: M10.9 Gout, unspecified (principal); M79.674 Pain in right toe(s); F17.210 Nicotine dependence, cigarettes, uncomplicated
CPT/HCPCS: 99281

== ENCOUNTER 2019-02-10 09:36 | Emergency (ER) | payer MEDICARE, MEDICAID ==
[2019-02-10 09:43] VITALS: BP 167/112
--- NOTE | 2019-02-10 10:34 | ED ---
Throat Pain/Nasal Congestion - HPI Summary HPI Summary: The patient is a 63 year old M presenting to [facility] with a chief complaint of wax in his ear for around a month. Pt reports trying to remove wax with ear drops to no effect. He went to [facility] a couple days ago to get the wax removed, but they did not according to the pt. Symptoms are aggravated by nothing. Symptoms are alleviated by nothing. The pt denies any other symptoms besides ear wax, and stated that his R ear was better than his L ear. - History of Current Complaint Chief Complaint: EDEarPain Time Seen by Provider: 02/10/19 10:21 Hx Obtained From: Patient Onset/Duration: Lasting Weeks - Past month, pt has had a build up of ear wax bilaterally, Still Present Associated Signs And Symptoms: Positive: Negative - all other symptoms negative besides build up of ear wax - Allergies/Home Medications Allergies/Adverse Reactions: Allergies Allergy/AdvReac Type Severity Reaction Status Date / Time No Known Allergies Allergy Verified 02/10/19 09:43 Home Medications: Home Medications NK [No Home Medications Reported] 02/10/19 [History Confirmed 02/10/19] PMH/Surg Hx/FS Hx/Imm Hx Previously Healthy: No Endocrine/Hematology History: Denies: Hx Diabetes, Hx Thyroid Disease Cardiovascular History: Reports: Hx Hypertension Denies: Hx Peripheral Vascular Disease Musculoskeletal History: Reports: Hx Arthritis - OF KNEES , Hx Gout, Hx Orthopedic Injury, Other Musculoskeletal History - osteoarthritis bilateral knees Sensory History: Denies: Hx Contacts or Glasses, Hx Legally Blind Opthamlomology History: Denies: Hx Contacts or Glasses, Hx Legally Blind Neurological History: Denies: Hx Headaches, Hx Seizures, Hx Transient Ischemic Attacks (TIA) - Surgical History Surgery Procedure, Year, and Place: Knee scope Infectious Disease History: No Infectious Disease History: Denies: Traveled Outside the [place] in Last 30 Days - Family History Known Family History: Positive: Hypertension Negative: Cardiac Disease - Social History Alcohol Use: Occasionally Alcohol Amount: 3-9 drinks on weekends Hx Substance Use: Yes Substance Use Type: Reports: Marijuana, Other Substance Use Comment - Amount & Last Used: States crack use sometimes Hx Tobacco Use: Yes Smoking Status (MU): Light Every Day Tobacco Smoker Review of Systems Negative: Fever Positive: Other - Ear wax build up All Other Systems Reviewed And Are Negative: Yes Physical Exam - Summary Physical Exam Summary: Constitutional: Well-developed, Well-nourished, Alert. (-) Distressed Skin: Warm, Dry HENT: Normocephalic; Atraumatic, L ear impacted cerumen Eyes: Strabismus Neck: Musculoskeletal ROM normal neck. (-) JVD, (-) Stridor, (-) Tracheal deviation Cardio: Rhythm regular, rate normal, Heart sounds normal; Intact distal pulses; The pedal pulses are 2+ and symmetric. Radial pulses are 2+ and symmetric. (-) Murmur Pulmonary/Chest wall: Effort normal. (-) Respiratory distress, (-) Wheezes, (-) Rales Abd: Soft, (-) tenderness, (-) Distension, (-) Guarding, (-) Rebound Musculoskeletal: (-) Edema Lymph: (-) Cervical adenopathy Neuro: Alert, Oriented x3 Psych: Mood and affect Normal Triage Information Reviewed: Yes Vital Signs On Initial Exam: Initial Vitals Temp Pulse Resp BP Pulse Ox 97.9 F 94 16 167/112 97 02/10/19 09:40 02/10/19 09:40 02/10/19 09:40 02/10/19 09:40 02/10/19 09:40 Vital Signs Reviewed: Yes Procedures - Incision and Drainage Left Ear Site: Cerumen: Pt had ear wax cleaned out with saline. No complications. Anesthesia: Other - none Instrument(s): Other - syringe and saline Packing: Other - not necessary Diagnostics - Vital Signs Vital Signs Temp Pulse Resp BP Pulse Ox 02/10/19 09:40 97.9 F 94 16 167/112 97 - Laboratory Lab Statement: Any lab studies that have been ordered have been reviewed, and results considered in the medical decision making process. EENT Course/Dx - Course Course Of Treatment: The patient is a 63 year old M presenting to [facility] with a chief complaint of wax in his ear for around a month. The pt received a procedure to clean the impacted wax from his cerumen using saline and a syringe. The procedure was completed without complications and the pt was discharged home after the completion of the procedure. - Diagnoses Provider Diagnoses: Impacted cerumen of left ear Discharge - Sign-Out/Discharge Documenting (check all that apply): Patient Departure - home Patient Received Moderate/Deep Sedation with Procedure: No - Discharge Plan Condition: Stable Disposition: HOME Patient Education Materials: C[employer] Impaction (ED) Print Language: SPANISH Referrals: Dianne Emerson PA [Primary Care Provider] - - Billing Disposition and Condition Condition: STABLE Disposition: Home - Attestation Statements Document Initiated by Carol: Yes Documenting Scribe: Patrick Armas Provider For Whom Carol is Documenting (Include Credential): Geri Rowell MD Scribe Attestation: I, Patrick Armas, scribed for Geri Partida MD on 02/10/19 at 1833. Scribe Documentation Reviewed: Yes Provider Attestation: The documentation as recorded by the Patrick mckeon accurately reflects the service I personally performed and the decisions made by me, Geri Partida MD Status of Scribe Document: Viewed
== END 2019-02-10 10:56 | disposition home or self-care (01) ==
LOC: ED 09:36
DX: H61.22 Impacted cerumen, left ear (principal)
CPT/HCPCS: 99281

== ENCOUNTER 2019-03-08 09:38 | Emergency (ER) | payer MEDICARE, MEDICAID ==
[2019-03-08 12:02] VITALS: BP 138/69
--- NOTE | 2019-03-08 17:27 | ED ---
Skin Complaint - HPI Summary HPI Summary: Patient is a 63-year-old male presenting to the emergency department for a rash the tip of his penis 3 days. Area is itching and feels irritated. Patient states he tried putting hydrocortisone cream on it which has not been helping. Patient denies fever, chills, abdominal pain, penile discharge, new sexual partners. No history of diabetes. Symptoms are mild in severity. No current modifying factors. - History of Current Complaint Chief Complaint: EDRashSkinAbscess Time Seen by Provider: 03/08/19 10:55 Stated Complaint: PENIS PROBLEMS PER PT Hx Obtained From: Patient Pain Intensity: 2 Pain Scale Used: 0-10 Numeric - Additional Pertinent History Primary Care Physician: [id number] - Allergy/Home Medications Allergies/Adverse Reactions: Allergies Allergy/AdvReac Type Severity Reaction Status Date / Time No Known Allergies Allergy Verified 02/10/19 09:43 PMH/Surg Hx/FS Hx/Imm Hx Previously Healthy: Yes Endocrine/Hematology History: Denies: Hx Diabetes, Hx Thyroid Disease Cardiovascular History: Reports: Hx Hypertension Denies: Hx Peripheral Vascular Disease Musculoskeletal History: Reports: Hx Arthritis - OF KNEES , Hx Gout, Hx Orthopedic Injury, Other Musculoskeletal History - osteoarthritis bilateral knees Sensory History: Denies: Hx Contacts or Glasses, Hx Legally Blind Opthamlomology History: Denies: Hx Contacts or Glasses, Hx Legally Blind Neurological History: Denies: Hx Headaches, Hx Seizures, Hx Transient Ischemic Attacks (TIA) - Surgical History Surgery Procedure, Year, and Place: Knee scope Infectious Disease History: No Infectious Disease History: Denies: Traveled Outside the [place] in Last 30 Days - Family History Known Family History: Positive: Hypertension, Non-Contributory Negative: Cardiac Disease - Social History Occupation: Employed Full-time Lives: Alone Alcohol Use: Occasionally Alcohol Amount: 3-9 drinks on weekends Hx Substance Use: Yes Substance Use Type: Reports: Marijuana, Other Substance Use Comment - Amount & Last Used: States crack use sometimes Hx Tobacco Use: Yes Smoking Status (MU): Light Every Day Tobacco Smoker Review of Systems Constitutional: Negative Negative: Fever, Chills Gastrointestinal: Negative Negative: Abdominal Pain, Vomiting, Diarrhea Positive: other - rash and itching to penis. No discharge. . Negative: dysuria Neurological: Negative All Other Systems Reviewed And Are Negative: Yes Physical Exam Triage Information Reviewed: Yes Vital Signs On Initial Exam: Initial Vitals Temp Pulse Resp BP Pulse Ox 98.7 F 103 16 181/126 96 03/08/19 09:47 03/08/19 09:47 03/08/19 09:47 03/08/19 09:47 03/08/19 09:47 Vital Signs Reviewed: Yes Appearance: Positive: Well-Appearing - Pt. sitting on bed in NAD. Skin: Positive: Warm, Dry Head/Face: Positive: Normal Head/Face Inspection Eyes: Positive: Normal, EOMI Neck: Positive: Supple Male Genital Exam: Positive: Other - Exam performed with JOMAR aTylor. No testicular edema or erythema. Circumcised. Noted at the base of the glands penile there is a small area of erythema and edema noted where the base meets the glands. No vesicular lesions. NO induration or fluctuance. Neurological: Positive: Normal, CN Intact II-III Psychiatric: Positive: Affect/Mood Appropriate Diagnostics - Vital Signs Vital Signs Temp Pulse Resp BP Pulse Ox 03/08/19 11:58 98.3 F 74 18 138/69 99 03/08/19 09:47 98.7 F 103 16 181/126 96 - Laboratory Lab Statement: Any lab studies that have been ordered have been reviewed, and results considered in the medical decision making process. Course/Dx - Course Course Of Treatment: Exam most consistant with intertrigo. Will treat with clotrimazole. To keep area clean and dry. To f.u with the [facility] if sxs persist. Pt. understands and agrees with plan. - Diagnoses Provider Diagnoses: Intertriginous candidiasis Discharge - Sign-Out/Discharge Documenting (check all that apply): Patient Departure Patient Received Moderate/Deep Sedation with Procedure: No - Discharge Plan Condition: Good Disposition: HOME Prescriptions: Clotrimazole 1% CREAM* [Clotrimazole 1%*] 1 applic TOPICAL BID #60 tube Patient Education Materials: Skin Yeast Infection (ED) Referrals: [facility] [Outside] Additional Instructions: Follow up with the [facility] if rash persist Use cream twice a day as directed Keep area clean and dry Return to ER if symptoms change or worsen - Billing Disposition and Condition Condition: GOOD Disposition: Home
== END 2019-03-08 11:58 | disposition home or self-care (01) ==
LOC: ED 09:38
DX: B37.2 Candidiasis of skin and nail (principal); I10 Essential (primary) hypertension
CPT/HCPCS: 99282

== ENCOUNTER → 2019-04-04 | Emergency (ER) | payer MEDICARE, MEDICAID ==
[~2019-04-04] MED LIST: Cephalexin CAP* 500 MG PO ONE; Ibuprofen TAB* 800 MG PO ONE; cloNIDine TAB* 0.1 MG PO ONE; oxyCODONE/Acetamin 5/325 MG* TAB PO ONE
--- NOTE | 2019-04-04 11:13 | ED ---
Complex/Multi-Sys Presentation - HPI Summary HPI Summary: This patient is a 63 year old M presenting to ED with a chief complaint of bilateral foot swelling since 04/02/19. Patient thinks he has gout. Patient has had this happen before. He states he was eating too much spicy food and beer. Patient has a history of HTN, but he has not been taking his medication. He is hypertensive on arrival. The patient rates the pain 9/10 in severity. Symptoms aggravated by nothing. Symptoms alleviated by nothing. Patient denies CP, SOB, fevers, chills, N/V, STAHL, blurry vision. - History Of Current Complaint Chief Complaint: EDExtremityLower Time Seen by Provider: 04/04/19 11:00 Hx Obtained From: Patient Onset/Duration: Lasting Days - 04/02/19, Still Present Timing: Constant Severity Currently: Severe Severity Initially: Severe Location: Pain At: - Bilateral feet Aggravating Factor(s): Nothing Alleviating Factor(s): Nothing Associated Signs And Symptoms: Positive: Other - Bilateral foot pain/swelling, negative blurry vision. Negative: Headache, SOB, Chest Pain, Nausea, Vomiting, Fever - Allergies/Home Medications Allergies/Adverse Reactions: Allergies Allergy/AdvReac Type Severity Reaction Status Date / Time No Known Allergies Allergy Verified 04/04/19 10:16 PMH/Surg Hx/FS Hx/Imm Hx Endocrine/Hematology History: Denies: Hx Diabetes, Hx Thyroid Disease Cardiovascular History: Reports: Hx Hypertension Denies: Hx Deep Vein Thrombosis, Hx Peripheral Vascular Disease Respiratory History: Denies: Hx Pulmonary Embolism Musculoskeletal History: Reports: Hx Arthritis - OF KNEES , Hx Gout, Hx Orthopedic Injury, Other Musculoskeletal History - osteoarthritis bilateral knees Sensory History: Denies: Hx Contacts or Glasses, Hx Legally Blind Opthamlomology History: Denies: Hx Contacts or Glasses, Hx Legally Blind Neurological History: Denies: Hx Headaches, Hx Seizures, Hx Transient Ischemic Attacks (TIA) - Surgical History Surgery Procedure, Year, and Place: Knee scope Infectious Disease History: No Infectious Disease History: Denies: Traveled Outside the [place] in Last 30 Days - Family History Known Family History: Positive: Hypertension Negative: Cardiac Disease - Social History Alcohol Use: Occasionally Alcohol Amount: 3-9 drinks on weekends Hx Substance Use: Yes Substance Use Type: Reports: Marijuana Substance Use Comment - Amount & Last Used: States crack use sometimes Hx Tobacco Use: Yes Smoking Status (MU): Light Every Day Tobacco Smoker Review of Systems Negative: Fever, Chills Negative: Blurred Vision Negative: Chest Pain Negative: Shortness Of Breath Negative: Vomiting, Nausea Musculoskeletal: Other - Bilateral foot swelling and pain Negative: Headache All Other Systems Reviewed And Are Negative: Yes Physical Exam - Summary Physical Exam Summary: GENERAL: Patient is a well-developed and nourished M who is lying comfortable in the stretcher. Patient is not in any acute respiratory distress. HEAD AND FACE: Normocephalic EYES: PERRLA, EOMI x 2. EARS: Hearing grossly intact. MOUTH: Oropharynx within normal limits. NECK: Supple, trachea is midline, no adenopathy, no JVD, no carotid bruit. CHEST: Symmetric, no tenderness at palpation LUNGS: Clear to auscultation bilaterally. No wheezing or crackles. CVS: Regular rate and rhythm, S1 and S2 present, no murmurs or gallops appreciated. ABDOMEN: Soft, non-tender. Bowel sounds are normal. No abnormal abdominal pulsations. EXTREMITIES: 1+ pitting edema bilaterally NEURO: Alert and oriented x 3. No acute neurological deficits. Speech is normal and follows commands. SKIN: Dry and warm Triage Information Reviewed: Yes Vital Signs On Initial Exam: Initial Vitals Temp Pulse Resp BP Pulse Ox 97.8 F 88 16 188/124 97 04/04/19 10:11 04/04/19 10:11 04/04/19 10:11 04/04/19 10:11 04/04/19 10:11 Vital Signs Reviewed: Yes Diagnostics - Vital Signs Vital Signs Temp Pulse Resp BP Pulse Ox 04/04/19 10:11 97.8 F 88 16 188/124 97 - Laboratory Result Diagrams: 04/04/19 11:44 04/04/19 11:44 Lab Statement: Any lab studies that have been ordered have been reviewed, and results considered in the medical decision making process. - Radiology CXR Radiology Interpretation Completed By: Radiologist Summary of Radiographic Findings: NO ACTIVE CARDIOPULMONARY DISEASE IS NOTED. Dr. Johnson has reviewed this radiology report. - Ultrasound DVT Ultrasound Interpretation Completed By: Radiologist Summary of Ultrasound Findings: NO EVIDENCE OF DEEP VENOUS THROMBOSIS OF EITHER LOWER EXTREMITY IS PRESENT. Dr. Johnson has reviewed this radiology report. - EKG 1114 Cardiac Rate: NL - 70 BPM EKG Rhythm: Sinus Rhythm Summary of EKG Findings: NSR at 70 BPM, occasional PVCs, LVH. Re-Evaluation - Re-Evaluation First Eval Re-Evaluation Time: 14:22 Comment: Discussed results with patient. Patient will be discharged home with dx of cellulitis. Patient understands and agrees with this plan. Complex Multi-Symp Course/Dx Course Of Treatment: This patient is a 63 year old M presenting to ED with a chief complaint of bilateral foot swelling since 04/02/19. EKG at 1114 revealed NSR at 70 BPM, occasional PVCs, LVH. In the ED course, patient received Catapres , Keflex, Motrin, Percocet. Blood work obtained. CXR revealed NO ACTIVE CARDIOPULMONARY DISEASE IS NOTED. DVT US revealed NO EVIDENCE OF DEEP VENOUS THROMBOSIS OF EITHER LOWER EXTREMITY IS PRESENT. I discussed results with patient, and he reports feeling better. He is hemodynamically stable and safe for discharge. Strict return precautions given and he will otherwise follow up with his PCP. Patient will be discharged home w dx of cellulitis. - Diagnoses Provider Diagnoses: Cellulitis Discharge - Sign-Out/Discharge Documenting (check all that apply): Patient Departure - Discharge Patient Received Moderate/Deep Sedation with Procedure: No - Discharge Plan Condition: Stable Disposition: HOME Prescriptions: Cephalexin CAP* [Keflex CAP*] 500 mg PO QID 7 Days #28 cap Ibuprofen TAB* [Motrin TAB* 800 MG] 800 mg PO Q6H #24 tab Patient Education Materials: Cellulitis (ED) Referrals: [facility] [place] [facility] [Outside] - 3 Days Additional Instructions: Follow up with your primary care physician in 1-3 days. RETURN TO THE EMERGENCY DEPARTMENT FOR CHANGING OR WORSENING SYMPTOMS. - Billing Disposition and Condition Condition: STABLE Disposition: Home - Attestation Statements Document Initiated by Ferminibe: Yes Documenting Scribe: Elliot Camejo Provider For Whom Carol is Documenting (Include Credential): Yudith Johnson MD Scribe Attestation: Elliot Plascencia, scribed for Yudith Johnson MD on 04/06/19 at 0746. Scribe Documentation Reviewed: Yes Provider Attestation: The documentation as recorded by the Elliot mckeon accurately reflects the service I personally performed and the decisions made by me, Yudith Johnson MD Status of Scribe Document: Viewed
[2019-04-04 12:07] LABS: ABS Basophils 0.1 10^3/ul (0-0.2); ABS Eosinophils 0.6 10^3/ul (0-0.6); ABS Lymphocytes 1.4 10^3/ul (1.0-4.8); ABS Monocytes 0.9 10^3/ul (0-0.8); Eosinophil % 5.1 %; Hematocrit 39 % (42-52); Hemoglobin 12.5 g/dL (14.0-18.0); Lymphocyte % 12.7 %; Mean Corpuscular HGB Conc 32 g/dL (31-36); Mean Corpuscular Hemoglobin 25 pg (27-31); Mean Corpuscular Volume 77 fL (80-94); Mean Platelet Volume 8.1 fL (7.4-10.4); Nucleated Red Blood Cells % 0.1; Platelet Count 174 10^3/uL (150-450); Red Blood Count 5.01 10^6 /uL (4.18-5.48); Red Cell Distribution Width 15 % (10-15); White Blood Count 10.9 10^3/uL (3.5-10.8)
[2019-04-04 12:19] LABS: Albumin 4.1 g/dL (3.2-5.2); Albumin/Globulin Ratio 1.6 (1-3); BUN/Creatinine Ratio 14.3 (8-20); Calcium 9.2 mg/dL (8.6-10.3); EGFR African American 123.9 (>60); EGFR Non-African American 102.4 (>60); Globulin 2.5 g/dL (2-4); INR 1.02 (0.82-1.09); Magnesium 1.8 mg/dL (1.9-2.7); Potassium 3.6 mmol/L (3.5-5.0); Total Bilirubin 1.3 mg/dL (0.2-1.0); Total Protein 6.6 g/dL (6.4-8.9); Uric Acid 6.8 mg/dL (4.4-7.6)
[2019-04-04 12:21] LABS: Troponin I 0.01 ng/mL (<0.04)
[2019-04-04 14:09] VITALS: BP 161/111
== END | disposition home or self-care (01) ==
LOC: ED 10:09
DX: L03.116 Cellulitis of left lower limb (principal); L03.115 Cellulitis of right lower limb; I10 Essential (primary) hypertension; F17.210 Nicotine dependence, cigarettes, uncomplicated
CPT/HCPCS: 71045; 80053; 83605; 83735; 83880; 84484; 84550; 85025; 85610; 85730; 87040; 93005; 93970; 99284; A9270-GY

== ENCOUNTER → 2019-04-10 09:30 | Emergency (ER) | payer MEDICARE, MEDICAID ==
[~2019-04-10 09:30] MED LIST changes: -Cephalexin CAP* 500 MG PO ONE; -Ibuprofen TAB* 800 MG PO ONE; +Indomethacin CAP* 25 MG CAP PO ONE; -cloNIDine TAB* 0.1 MG PO ONE; -oxyCODONE/Acetamin 5/325 MG* TAB PO ONE; +traMADol TAB* 50 MG PO ONE
[2019-04-10 10:04] VITALS: BP 0000/0
--- NOTE | 2019-04-10 14:38 | ED ---
Lower Extremity - HPI Summary HPI Summary: This patient is a 63-year-old male presenting to the ED with right great toe pain. He states he has been diagnosed with a bunion and often has pain to the side. He has not seen a truck loader overhead crane. He was discharged a few months ago with the diagnosis of bunion pain and was given indomethacin. He states this was to cover for a possible gout. He denies pain to the toe otherwise, just over the medial portion of the right great MCP/bunion. He denies any other symptoms. He states the indomethacin improved his symptoms. - History of Current Complaint Chief Complaint: EDExtremityLower Stated Complaint: TOE INJURY Time Seen by Provider: 04/10/19 09:35 Hx Obtained From: Patient Onset of Pain: Prior to Arrival Onset/Duration: Still Present Severity Initially: Moderate Severity Currently: Moderate Pain Intensity: 10 Pain Scale Used: 0-10 Numeric Timing: Constant Location: Is Discrete @ - right MCP Associated Signs And Symptoms: Positive: Redness. Negative: Swelling, Bruising , Weakness Aggravating Factor(s): Standing, Ambulation Alleviating Factor(s): Rest Able to Bear Weight: Yes - Risk Factors Gout Risk Factors: Age Over 40, Male - Allergies/Home Medications Allergies/Adverse Reactions: Allergies Allergy/AdvReac Type Severity Reaction Status Date / Time No Known Allergies Allergy Verified 04/04/19 10:16 PMH/Surg Hx/FS Hx/Imm Hx Previously Healthy: Yes Endocrine/Hematology History: Denies: Hx Diabetes, Hx Thyroid Disease Cardiovascular History: Reports: Hx Hypertension Denies: Hx Deep Vein Thrombosis, Hx Peripheral Vascular Disease Respiratory History: Denies: Hx Pulmonary Embolism Musculoskeletal History: Reports: Hx Arthritis - OF KNEES , Hx Gout, Hx Orthopedic Injury, Other Musculoskeletal History - osteoarthritis bilateral knees Sensory History: Denies: Hx Contacts or Glasses, Hx Legally Blind Opthamlomology History: Denies: Hx Contacts or Glasses, Hx Legally Blind Neurological History: Denies: Hx Headaches, Hx Seizures, Hx Transient Ischemic Attacks (TIA) - Surgical History Surgery Procedure, Year, and Place: Knee scope - Immunization History Hx Pertussis Vaccination: No Immunizations Up to Date: Yes Infectious Disease History: No Infectious Disease History: Denies: Traveled Outside the [place] in Last 30 Days - Family History Known Family History: Positive: Hypertension Negative: Cardiac Disease - Social History Occupation: Unemployed Lives: With Family Alcohol Use: Occasionally Alcohol Amount: 3-9 drinks on weekends Hx Substance Use: Yes Substance Use Type: Reports: Marijuana Substance Use Comment - Amount & Last Used: States crack use sometimes Hx Tobacco Use: Yes Smoking Status (MU): Light Every Day Tobacco Smoker Review of Systems Negative: Fever, Chills, Fatigue, Skin Diaphoresis Negative: Palpitations, Chest Pain Negative: Shortness Of Breath Genitourinary: Negative Positive: no symptoms reported, see HPI Positive: Arthralgia - right great toe pain/MCP joint Positive: Other - right erythematous toe Neurological: Negative All Other Systems Reviewed And Are Negative: Yes Physical Exam Triage Information Reviewed: Yes Vital Signs On Initial Exam: Initial Vitals Temp Pulse Resp BP Pulse Ox 97.4 F 93 18 183/131 98 04/10/19 09:31 04/10/19 09:31 04/10/19 09:31 04/10/19 09:31 04/10/19 09:31 Vital Signs Reviewed: Yes Appearance: Positive: No Pain Distress, Well-Nourished Skin: Positive: Skin Color Reflects Adequate Perfusion, Other - right great toe erythema over the MCP/medial side Eyes: Positive: EOMI, ARPITA, Conjunctiva Clear Neck: Positive: Supple, No Lymphadenopathy Respiratory/Lung Sounds: Positive: Clear to Auscultation, Breath Sounds Present Cardiovascular: Positive: RRR, Pulses are Symmetrical in both Upper and Lower Extremities Musculoskeletal: Positive: Strength/ROM Intact Neurological: Positive: Alert, Oriented to Person Place, Time, Speech Normal Psychiatric: Positive: Affect/Mood Appropriate Diagnostics - Vital Signs Vital Signs Temp Pulse Resp BP Pulse Ox 04/10/19 10:03 0 F 0 14 0000/0 0 04/10/19 09:31 97.4 F 93 18 183/131 98 - Laboratory Lab Statement: Any lab studies that have been ordered have been reviewed, and results considered in the medical decision making process. Lower Extremity Course/Dx - Course Course Of Treatment: On physical examination, there is erythema to the MCP of the right great toe without extension distally. It does not appear to be gout. He does have an obvious bunion to this area. He will be given indomethacin as well as some pain control. He is encouraged to follow up with truck loader overhead crane. - Diagnoses Provider Diagnoses: Bunion of great toe Discharge - Sign-Out/Discharge Documenting (check all that apply): Patient Departure Patient Received Moderate/Deep Sedation with Procedure: No - Discharge Plan Condition: Stable Disposition: HOME Prescriptions: Indomethacin CAP* [Indocin CAP*] 50 mg PO BID #12 cap MDD 2 Indomethacin CAP* [Indocin CAP*] 50 mg PO BID #12 cap traMADol TAB* [Ultram*] 50 mg PO Q8H PRN #12 tab MDD 3 PRN Reason: Pain traMADol TAB* [Ultram*] 50 mg PO Q8H PRN #12 tab MDD 3 PRN Reason: Pain Patient Education Materials: Bunion (ED), Bunionectomy (DC) Referrals: No Primary Care Phys,NOPCP [Primary Care Provider] - Additional Instructions: DISCUSSED LAST VISIT, YOU WILL NEED TO SEE A EDGE STAINER FOR THIS BUNION INDOMETHACIN TWICE DAILY NEEDED FOR INFLAMMATION AND PAIN TRAMADOL FOR PAIN - THREE TIMES DAILY - Billing Disposition and Condition Condition: STABLE Disposition: Home
== END | disposition home or self-care (01) ==
LOC: ED 09:30
DX: M21.611 Bunion of right foot (principal); I10 Essential (primary) hypertension; F17.210 Nicotine dependence, cigarettes, uncomplicated
CPT/HCPCS: 99282; A9270-GY

== ENCOUNTER 2019-06-29 10:38 | Emergency (ER) | payer MEDICARE, MEDICAID ==
[2019-06-29] MEDS ORDERED: Ketorolac *IM* INJ* 60 MG/2 ML VIAL IM ONE (10:56)
--- NOTE | 2019-06-29 11:00 | ED ---
Lower Extremity - HPI Summary HPI Summary: Pt is a 63 y/o M presenting to the ED with a chief complaint of L foot pain. He rates it at a 7-8/10 when he is standing on it. He denies fever, chills, or trauma. He notes hx of gout, and he believes this is gout. Pt declines any bloodwork or imaging. He states he would just like medication. - History of Current Complaint Chief Complaint: EDExtremityLower Stated Complaint: LT FOOT PAIN PER PT Hx Obtained From: Patient Mechanism Of Injury: Unknown Onset of Pain: Hours Onset/Duration: Still Present Severity Initially: Moderate Severity Currently: Severe Pain Intensity: 8 Pain Scale Used: 0-10 Numeric Timing: Constant, Lasting Hours Location: Is Discrete @ - L foot Associated Signs And Symptoms: Positive: Negative Aggravating Factor(s): Standing Alleviating Factor(s): Rest Able to Bear Weight: Yes - Allergies/Home Medications Allergies/Adverse Reactions: Allergies Allergy/AdvReac Type Severity Reaction Status Date / Time ibuprofen Allergy Bleeding Verified 06/29/19 10:49 Home Medications: Home Medications Carvedilol TAB NF [Coreg TAB NF] 1 tab PO BID 06/29/19 [History Confirmed ] Lisinopril/Hydrochlorothiazide [Lisinopril-Hctz 20-25 mg Tab] 1 tab PO DAILY [History Confirmed 06/29/19] Spironolactone 1 tab PO DAILY 06/29/19 [History Confirmed 06/29/19] PMH/Surg Hx/FS Hx/Imm Hx Previously Healthy: Yes Endocrine/Hematology History: Denies: Hx Diabetes, Hx Thyroid Disease Cardiovascular History: Reports: Hx Hypertension Denies: Hx Deep Vein Thrombosis, Hx Peripheral Vascular Disease Respiratory History: Denies: Hx Pulmonary Embolism Musculoskeletal History: Reports: Hx Arthritis - OF KNEES , Hx Gout, Hx Orthopedic Injury, Other Musculoskeletal History - osteoarthritis bilateral knees Sensory History: Denies: Hx Contacts or Glasses, Hx Legally Blind Opthamlomology History: Denies: Hx Contacts or Glasses, Hx Legally Blind Neurological History: Denies: Hx Headaches, Hx Seizures, Hx Transient Ischemic Attacks (TIA) - Surgical History Surgery Procedure, Year, and Place: Knee scope Infectious Disease History: No Infectious Disease History: Denies: Traveled Outside the [place] in Last 30 Days - Family History Known Family History: Positive: Hypertension Negative: Cardiac Disease - Social History Alcohol Use: Daily Alcohol Amount: 4 beer daily Hx Substance Use: Yes Substance Use Type: Reports: Marijuana Substance Use Comment - Amount & Last Used: States crack use sometimes Hx Tobacco Use: Yes Smoking Status (MU): Light Every Day Tobacco Smoker Review of Systems Negative: Fever, Chills Positive: Myalgia All Other Systems Reviewed And Are Negative: Yes Physical Exam - Summary Physical Exam Summary: VITAL SIGNS: Reviewed. GENERAL: Patient is a well-developed and nourished male who is lying comfortable in the stretcher. Patient is not in any acute respiratory distress. HEAD AND FACE: No signs of trauma. No ecchymosis, hematomas or skull depressions. No sinus tenderness. EYES: PERRLA, EOMI x 2, No injected conjunctiva, no nystagmus. EARS: Hearing grossly intact. Ear canals and tympanic membranes are within normal limits. MOUTH: Oropharynx within normal limits. NECK: Supple, trachea is midline, no adenopathy, no JVD, no carotid bruit, no c- spine tenderness, neck with full ROM. CHEST: Symmetric, no tenderness at palpation. LUNGS: Clear to auscultation bilaterally. No wheezing or crackles. CVS: Regular rate and rhythm, S1 and S2 present, no murmurs or gallops appreciated. ABDOMEN: Soft, non-tender. No signs of distention. No rebound, no guarding, and no masses palpated. Bowel sounds are normal. EXTREMITIES: FROM in all major joints, no edema, no cyanosis or clubbing. Mild tenderness in L first metatarsal, similar to when he has gout. NEURO: Alert and oriented x 3. No acute neurological deficits. Speech is normal and follows commands. SKIN: Dry and warm. Triage Information Reviewed: Yes Vital Signs On Initial Exam: Initial Vitals Temp Pulse Resp BP Pulse Ox 98.2 F 86 16 139/100 97 06/29/19 10:46 06/29/19 10:46 06/29/19 10:46 06/29/19 10:46 06/29/19 10:46 Vital Signs Reviewed: Yes Procedures - Sedation Patient Received Moderate/Deep Sedation with Procedure: No Diagnostics - Vital Signs Vital Signs Temp Pulse Resp BP Pulse Ox 06/29/19 10:46 98.2 F 86 16 139/100 97 - Laboratory Lab Statement: Any lab studies that have been ordered have been reviewed, and results considered in the medical decision making process. Lower Extremity Course/Dx - Course Assessment/Plan: Patient is a 63-year-old male who presents to the emergency department with a chief complaint of left toe pain. He reports pain is similar as when she has gout exacerbation. He declines bloodwork and she declines x- rays. He only wants a prescription from [facility] which he usually takes care of the gout exacerbation. I offered the patient Toradol and he agreed. The patient will be given a dose of prescription Indocin. He was recommended to return to the emergency department if the symptoms worsen. He understands and agrees. I discussed all the findings and test results with the patient. Patient was instructed to return to the emergency room immediately if any of the symptoms return worsens. Plan of care was discussed with the patient and understands and agrees. All questions were answered at patient satisfaction. There were no further complaints or concerns. Lung exam before discharge: CTA B/ L. Good air exchange. No wheezing or crackles heard. CVS: S1 and S2 present. No murmurs appreciated. Patient is alert and oriented x 3. Patient is hemodynamically stable. Patient will be discharged home with follow up PCP in the next 2-3 days - Diagnoses Provider Diagnoses: Gout Discharge ED - Sign-Out/Discharge Documenting (check all that apply): Patient Departure - Discharge Plan Condition: Stable Disposition: HOME Prescriptions: Indomethacin CAP* [Indocin CAP*] 50 mg PO BID #12 cap Patient Education Materials: Gout (ED) Referrals: [facility] [Outside] Additional Instructions: Follow up with your primary care provider in 1-3 days. Come back to the emergency department with any new or worsening symptoms. - Billing Disposition and Condition Condition: STABLE Disposition: Home - Attestation Statements Document Initiated by Ferminibe: Yes Documenting Scribe: Mariely Palacio Provider For Whom Carol is Documenting (Include Credential): Jcarlos Jeff MD. Scribe Attestation: Mariely Plascencia scribed for Jcarlos Jeff MD. on 06/29/19 at 1855. Scribe Documentation Reviewed: Yes Provider Attestation: The documentation as recorded by the Mariely mckeon accurately reflects the service I personally performed and the decisions made by me, Jcarlos Jeff MD. Status of Scribe Document: Viewed
[2019-06-29 11:14] VITALS: BP 0/0
== END 2019-06-29 11:16 | disposition home or self-care (01) ==
LOC: ED 10:38
DX: M10.072 Idiopathic gout, left ankle and foot (principal); I10 Essential (primary) hypertension; Z88.6 Allergy status to analgesic agent; F17.200 Nicotine dependence, unspecified, uncomplicated
CPT/HCPCS: 96372; 99282; J1885

== ENCOUNTER 2019-09-16 10:45 | Emergency (ER) | payer MEDICARE, MEDICAID ==
--- NOTE | 2019-09-16 11:12 | ED ---
HPI Chest Pain - HPI Summary HPI Summary: This pt is a 63 Y/O M presenting to [facility] with a CC of CP that has been intermittent since yesterday. He states that the pain was resolved yesterday after he went to sleep. He states that the pain was described as a pinch. The pain was located on his lateral L chest. He states that he has not experianced the pain before and denes that it felt like heart burn. He denies any diaphoresis, N/V, headaches, and SOB. He states that when he was lying down the pain was worse. His symptoms were alleviated when he sat up. He states that he smokes 3 cigarettes a day. He has a PMHx of HTN. - History of Current Complaint Chief Complaint: EDChestPainROMI Time Seen by Provider: 09/16/19 10:55 Hx Obtained From: Patient Onset/Duration: Started Days Ago - 1, Resolved Timing: Intermittent Initial Severity: Moderate Current Severity: None Pain Intensity: 0 Pain Scale Used: 0-10 Numeric Chest Pain Location: Left Lateral Character: Other: - pinching Aggravating Factor(s): Position - lying down Alleviating Factor(s): Position - sitting up Associated Signs and Symptoms: Positive: Chest Pain. Negative: Headaches, Shortness of Breath, Diaphoresis, Nausea, Vomiting - Additional Pertinent History Primary Care Physician: CARMEN - Allergy/Home Medications Allergies/Adverse Reactions: Allergies Allergy/AdvReac Type Severity Reaction Status Date / Time ibuprofen Allergy Bleeding Verified 09/16/19 10:52 PMH/Surg Hx/FS Hx/Imm Hx Previously Healthy: Yes Endocrine/Hematology History: Denies: Hx Diabetes, Hx Thyroid Disease Cardiovascular History: Reports: Hx Hypertension Denies: Hx Deep Vein Thrombosis, Hx Peripheral Vascular Disease Respiratory History: Denies: Hx Pulmonary Embolism Musculoskeletal History: Reports: Hx Arthritis - OF KNEES , Hx Gout, Hx Orthopedic Injury, Other Musculoskeletal History - osteoarthritis bilateral knees Sensory History: Denies: Hx Contacts or Glasses, Hx Legally Blind Opthamlomology History: Denies: Hx Contacts or Glasses, Hx Legally Blind Neurological History: Denies: Hx Headaches, Hx Seizures, Hx Transient Ischemic Attacks (TIA) - Cancer History Hx Chemotherapy: No Hx Radiation Therapy: No - Surgical History Surgical History: Yes Surgery Procedure, Year, and Place: Knee scope - Immunization History Immunizations Up to Date: Yes Infectious Disease History: No Infectious Disease History: Denies: Traveled Outside the [place] in Last 30 Days - Family History Known Family History: Positive: Hypertension Negative: Cardiac Disease - Social History Occupation: Unemployed Lives: Alone Alcohol Use: Daily Alcohol Amount: 4 beer daily Hx Substance Use: Yes Substance Use Type: Reports: Marijuana Substance Use Comment - Amount & Last Used: States crack use sometimes Hx Tobacco Use: Yes Smoking Status (MU): Light Every Day Tobacco Smoker Amount Used/How Often: 3-4 cigarettes Per day Review of Systems Negative: Skin Diaphoresis Positive: Chest Pain - L lateral Negative: Shortness Of Breath Negative: Vomiting, Nausea Negative: Headache All Other Systems Reviewed And Are Negative: Yes Physical Exam - Summary Physical Exam Summary: Appearance: The patient is well-nourished in no acute distress and in no acute pain. Skin: The skin is warm and dry and skin color reflects adequate perfusion. HEENT: The head is normocephalic and atraumatic. The pupils are equal and reactive. The conjunctivae are clear and without drainage. Nares are patent and without drainage. Mouth reveals moist mucous membranes and the throat is without erythema and exudate. The external ears are intact. The ear canals are patent and without drainage. The tympanic membranes are intact. Neck: The neck is supple with full range of motion and non-tender. There are no carotid bruits. There is no neck vein distension. Respiratory: Chest is non-tender. Lungs are clear to auscultation and breath sounds are symmetrical and equal. Cardiovascular: Heart is regular rate and rhythm. There is no murmur or rub auscultated. There is no peripheral edema and pulses are symmetrical and equal. Abdomen: The abdomen is soft and non-tender. There are normal bowel sounds heard in all four quadrants and there is no organomegaly palpated. Musculoskeletal: There is no back tenderness noted. Extremities are non-tender with full range of motion. There is good capillary refill. There is no peripheral edema or calf tenderness elicited. Neurological: Patient is alert and oriented to person, place and time. The patient has symmetrical motor strength in all four extremities. Cranial nerves are grossly intact. Deep tendon reflexes are symmetrical and equal in all four extremities. Psychiatric: The patient has an appropriate affect and does not exhibit any anxiety or depression. Triage Information Reviewed: Yes Vital Signs On Initial Exam: Initial Vitals Temp Pulse Resp BP Pulse Ox 98.1 F 88 16 113/92 96 09/16/19 10:49 09/16/19 10:49 09/16/19 10:49 09/16/19 10:49 09/16/19 10:49 Vital Signs Reviewed: Yes Procedures - Sedation Patient Received Moderate/Deep Sedation with Procedure: No Diagnostics - Vital Signs Vital Signs Temp Pulse Resp BP Pulse Ox 09/16/19 10:49 98.1 F 88 16 113/92 96 - Laboratory Result Diagrams: 09/16/19 11:29 09/16/19 11:29 Lab Statement: Any lab studies that have been ordered have been reviewed, and results considered in the medical decision making process. - Radiology CXR Radiology Interpretation Completed By: Radiologist Summary of Radiographic Findings: No active cardiopulmonary pathologies. ED physician has reviewed this report. - EKG 1112 Cardiac Rate: NL - 77 BPM EKG Rhythm: Sinus Rhythm ST Segment: Normal Ectopy: None Summary of EKG Findings: Normal sinus rhythm at a rate of 77 BPM, normal ST, no ectopy, no STEMI. Interpreted by Dr. Maldonado, 09/16/19 1116. Chest Pain Course/Dx - Course Course Of Treatment: Mr. Cueva came in with an atypical chest pain. He was non-toxic in appearance with stable vital signs. Initial EKG, chest x-ray and labs were negative. His chest pain was not present today. His heart score was 2 making him low probability and I discharged him to follow-up with his PCP. - Diagnoses Provider Diagnoses: Chest pain Discharge ED - Sign-Out/Discharge Documenting (check all that apply): Patient Departure - discharge - Discharge Plan Condition: Stable Disposition: HOME Patient Education Materials: Chest Pain (ED) Referrals: Care [facility] [Outside] - 2 Days Additional Instructions: PLEASE FOLLOW UP WITH THE CARE [facility] IN 1-3 DAYS TO HELP BE SET UP WITH A PRIMARY CARE PHYSICIAN. PLEASE RETURN TO THE EMERGENCY DEPARTMENT FOR ANY NEW OR WORSENING SYMPTOMS. - Billing Disposition and Condition Condition: STABLE Disposition: Home - Attestation Statements Document Initiated by Scribe: Yes Documenting Scribe: Patrick Armas Provider For Whom Scribe is Documenting (Include Credential): Lane Maldonado MD Scribe Attestation: IPatrick, scribed for Lane Maldonado MD on 09/16/19 at 1901. Scribe Documentation Reviewed: Yes Provider Attestation: The documentation as recorded by the scribe, Patrick Armas accurately reflects the service I personally performed and the decisions made by me, Lane Maldonado MD Status of Scribe Document: Viewed
[2019-09-16 11:38] LABS: ABS Basophils 0.1 10^3/ul (0-0.2); ABS Eosinophils 0.7 10^3/ul (0-0.6); ABS Lymphocytes 1.4 10^3/ul (1.0-4.8); ABS Monocytes 0.9 10^3/ul (0-0.8); ABS Neutrophils 5.9 10^3/ul (1.5-7.7); Eosinophil % 7.4 %; Hematocrit 42 % (42-52); Hemoglobin 13.4 g/dL (14.0-18.0); Lymphocyte % 15.8 %; Mean Corpuscular HGB Conc 32 g/dL (31-36); Mean Corpuscular Hemoglobin 26 pg (27-31); Mean Corpuscular Volume 80 fL (80-94); Mean Platelet Volume 8.4 fL (7.4-10.4); Nucleated Red Blood Cells % 0.1; Platelet Count 145 10^3/uL (150-450); Red Blood Count 5.26 10^6 /uL (4.18-5.48); Red Cell Distribution Width 15 % (10-15); White Blood Count 9.1 10^3/uL (3.5-10.8)
[2019-09-16 12:01] LABS: Albumin 4.4 g/dL (3.2-5.2); Albumin/Globulin Ratio 1.6 (1-3); BUN/Creatinine Ratio 16.7 (8-20); Calcium 9.9 mg/dL (8.6-10.3); EGFR African American 103.5 (>60); EGFR Non-African American 85.5 (>60); Globulin 2.7 g/dL (2-4); Potassium 4.3 mmol/L (3.5-5.0); Total Bilirubin 1.2 mg/dL (0.2-1.0); Total Protein 7.1 g/dL (6.4-8.9)
[2019-09-16 12:10] LABS: INR 1.05 (0.82-1.09)
[2019-09-16 12:55] VITALS: BP 141/103
== END 2019-09-16 12:54 | disposition home or self-care (01) ==
LOC: ED 10:45
DX: R07.9 Chest pain, unspecified (principal); I10 Essential (primary) hypertension; F17.210 Nicotine dependence, cigarettes, uncomplicated; Z88.8 Allergy status to other drugs, medicaments and biological substances
CPT/HCPCS: 36415; 71046; 80053; 83605; 84484; 85025; 85610; 93005; 99283

== ENCOUNTER 2022-09-26 09:41 | Observation (INO) ==
[~2022-09-26 09:41] MED LIST changes: +Acetaminophen IV 1 GM/100ML 1,000 MG/100 ML BAG IV ONE; +Buffered Lidocaine 1% SYRIN 1 ml INTRADERM ONE; +Dexamethasone IV 4 MG/ML VIAL 1 ml VIAL ONE; -Indomethacin CAP* 25 MG CAP PO ONE; +Lactated Ringers 1000 ml BAG 1,000 ML IV SCH; +Lidocaine 2% PF 5 ML VIAL ONE; +Midazolam 5 mg/5 ml VIAL 1 mg/ml 5 ml VIAL (5 mg) ONE; +Ondansetron 4 mg VIAL 2 MG/ML 2 ml VIAL ONE; +Phenylephrine IV 10 MG/ML 1 ml VIAL ONE; +fentaNYL 100 mcg/2 ml 50 MCG/ML VIAL ONE; -traMADol TAB* 50 MG PO ONE
[2022-09-26] MEDS ORDERED: ceFAZolin 2 GM PREMIX 2 GM/50 ML BAG ONE ×2 (09:55→09:56)
[2022-09-26] MEDS ORDERED: Ketamine HCL 50 mg/ml 10 ml VIAL (500 MG) ONE (10:11)
[2022-09-26 10:34] LABS: INR 1.19 (0.88-1.18)
[2022-09-26] MEDS ORDERED: Midazolam 5 mg/5 ml VIAL 1 mg/ml 5 ml VIAL (5 mg) ONE (10:58)
[2022-09-26] MEDS ORDERED: Glycopyrrolate IV 0.2 MG/ML 1 ML VIAL ONE (11:09)
[2022-09-26] MEDS ORDERED: Lidocaine 1% MPF 5 ML VIAL ONE (11:49)
[2022-09-26] MEDS ORDERED: ROPIVACAINE 5 MG/ML 30 ML BTL (0.5%) ONE ×2 (11:49→12:38)
[2022-09-26] MEDS ORDERED: HYDROmorphone 1 MG/1 ML SYRINGE IV PRN (13:04)
[2022-09-26] MEDS ORDERED: Ondansetron 4 mg VIAL 2 MG/ML 2 ml VIAL IV PRN ×2 (13:04→16:04)
[2022-09-26] MEDS ORDERED: Acetaminophen IV 1 GM/100ML 1,000 MG/100 ML BAG IV PRN (13:04)
[2022-09-26] MEDS ORDERED: Naloxone 0.4 mg VIAL 0.4 mg/ml 1 ml VIAL IV PRN (13:04)
[2022-09-26] MEDS ORDERED: fentaNYL 100 mcg/2 ml 50 MCG/ML VIAL IV PRN (13:04)
[2022-09-26] MEDS ORDERED: Magnesium Hydroxide LIQ 30 ML UDC PO PRN (16:04)
[2022-09-26] MEDS ORDERED: Ondansetron ODT 4 mg TAB 4 MG TAB PO PRN (16:04)
[2022-09-26] MEDS ORDERED: Lactulose 30 ml UDC PO PRN (16:04)
[2022-09-26] MEDS ORDERED: Lactated Ringers 1000 ml BAG 1,000 ML IV SCH (17:00)
[2022-09-26] MEDS: ceFAZolin 1 GM ADVAN 1 GM in NS 0.9% 50 ML 50 ML IVPB SCH (21:11)
[2022-09-26] MEDS: Magnesium Hydroxide LIQ 30 ML UDC PO SCH (21:17)
[2022-09-26] MEDS: Morphine 2 MG/ML SYRINGE IV PRN (23:01)
[2022-09-27] MEDS: Morphine 2 MG/ML SYRINGE IV PRN (04:06)
[2022-09-27] MEDS: ceFAZolin 1 GM ADVAN 1 GM in NS 0.9% 50 ML 50 ML IVPB SCH ×2 (05:05→12:59)
[2022-09-27 08:24] LABS: Hematocrit 38 % (42-52); Hemoglobin 11.9 g/dL (14.0-18.0); Mean Platelet Volume 8.4 fL (7.4-10.4); Platelet Count 144 10^3/uL (150-450)
[2022-09-27] MEDS ORDERED: Lisinopril/HCTZ 10/12.5 TA(NF) PO SCH (09:00)
[2022-09-27] MEDS ORDERED: Vitamin THERAPEUTIC TAB PO SCH (09:00)
[2022-09-27 09:01] LABS: Calcium 8.9 mg/dL (8.6-10.3); Potassium 3.5 mmol/L (3.5-5.0); eGFR CKD-EPI 82.5 (>60)
[2022-09-27] MEDS: Magnesium Hydroxide LIQ 30 ML UDC PO SCH (09:06)
[2022-09-27 11:05] VITALS: BP 94/56
== END 2022-09-27 13:10 | disposition home or self-care (01) ==
LOC: OR 09:41 → SSU 09:41
PROVIDERS: ADMIT Orthopaedic Surgery Adult Reconstructive Orthopaedic Surgery; ATTEND Orthopaedic Surgery Adult Reconstructive Orthopaedic Surgery